=== PATIENT | male | born 1940 | race Caucasian/White ===

== ENCOUNTER 2018-04-06 12:13 | Inpatient (IN) | payer MEDICARE, OTHER ==
[2018-04-06] MEDS: morphine 2 MG INJ IV (14:25)
[2018-04-06] MEDS ORDERED: ACETAMINOPHEN 650MG/20.3ML CUP PO (14:30)
[2018-04-06] MEDS ORDERED: NACL 0.9% 3 ML SYG IV (14:30)
[2018-04-06] MEDS ORDERED: VANCOMYCIN IV PER PHARMACY XX (14:30)
[2018-04-06] MEDS ORDERED: IPRATROPIUM (NEB) 0.5 MG/2.5 ML AMP NEB (14:30)
[2018-04-06] MEDS ORDERED: ONDANSETRON 4 MG INJ IV (14:30)
[2018-04-06] MEDS ORDERED: GLUCOSE GEL 15 GRAM TUBE BUCCAL (15:00)
[2018-04-06] MEDS ORDERED: GLUCAGON 1 MG INJ IM (15:00)
[2018-04-06] MEDS ORDERED: GLUCOSE GEL 15 GRAM TUBE PO ×2 (15:00)
[2018-04-06 15:10] LABS: ADD MAN DIFF? NO
[2018-04-06 15:13] LABS: BASOPHILS % 0.2 % (0.0-2.0); EOSINOPHILS # 0.2 10^3/ul (0.0-0.5); EOSINOPHILS % 1.1 % (0.0-7.0); HEMATOCRIT 28.4 % (42.0-52.0); HEMOGLOBIN 9.3 g/dl (14.0-18.0); LYMPHOCYTES # 0.9 10^3/ul (0.8-2.9); LYMPHOCYTES % 5.1 % (15.0-51.0); MEAN CORPUSCULAR HEMOGLOBIN 28.1 pg (29.0-33.0); MEAN CORPUSCULAR HGB CONC 32.7 g/dl (32.0-37.0); MEAN CORPUSCULAR VOLUME 85.8 fl (82.0-101.0); MEAN PLATELET VOLUME 12.1 fl (7.4-10.4); MONOCYTE # 0.9 10^3/ul (0.3-0.9); MONOCYTES % 5.3 % (0.0-11.0); NEUTROPHIL # 14.7 10^3/ul (1.6-7.5); NEUTROPHILS % 87.1 % (39.0-77.0); PLATELET COUNT 111 10^3/UL (140-415); RED BLOOD COUNT 3.31 10^6/ul (4.70-6.10); RED CELL DISTRIBUTION WIDTH 16.5 % (11.5-14.5)
[2018-04-06 15:13] LABS: WHITE BLOOD COUNT 16.8 10^3/ul (4.8-10.8)
[2018-04-06] MEDS: metroNIDAZOLE 500 MG/NS (PMX) 100 ML IVPB ×2 (15:29→21:00)
[2018-04-06 15:35] LABS: ANION GAP 17 (8-16); CALCIUM 7.8 mg/dl (8.4-10.2); CARBON DIOXIDE 23 mmol/L (21-31); CHLORIDE 107 mmol/L (97-110); GLUCOSE 212 mg/dl (70-220); MAGNESIUM 3.2 mg/dl (1.7-2.5); POTASSIUM 4.6 mmol/L (3.5-5.1); SODIUM 142 mmol/L (135-144)
[2018-04-06 15:45] LABS: BLOOD UREA NITROGEN 163 mg/dl (7-20); CREATININE 3.54 mg/dl (0.61-1.24)
[2018-04-06] MEDS ORDERED: PENDING SANTYL ORDER FOR WOUND CARE XX (16:00)
[2018-04-06] MEDS: ARTIFICIAL TEARS 15 ML OPH BOTH EYES ×2 (17:39→20:27)
[2018-04-06] MEDS: INSULIN ASPART [NOVOLOG] 3 ML PEN SC ×2 (17:53→20:39)
[2018-04-06] MEDS: CIPROFLOXACIN 400MG/D5W 200 ML IVPB (18:58)
[2018-04-06 19:04] LABS: LACTIC ACID 1.5 mmol/L (0.5-2.0)
[2018-04-06 19:52] LABS: FLD MN% 32.5 %; FLD PMN% 67.5 %; FLD RBC 23000 /uL; FLD WBC 271 /cmm
[2018-04-06] MEDS: NYSTATIN 30 GM POWDER BTL TOP (20:27)
[2018-04-06] MEDS: RIFAXIMIN 550 MG TAB PEG (20:27)
[2018-04-06] MEDS: MULTIVITAMINS THERAPEUTIC TAB GTB (20:27)
[2018-04-06] MEDS: LACTULOSE 30ML CUP PEG (20:27)
[2018-04-06] MEDS: INSULIN GLARGINE [LANTus] (100 UNITS/ML) SYG SC (20:36)
[2018-04-06 20:40] LABS: FLD TYPE ASCITES
[2018-04-06 20:40] LABS: FLD CLARITY CLOUDY; FLD COLOR AMBER
[2018-04-07] MEDS: CASPOFUNGIN 50 MG in SOD CHLORIDE 0.9% 250 ML IVPB (01:51)
[2018-04-07] MEDS ORDERED: ACCU-CHEK XX (02:00)
[2018-04-07] MEDS: INSULIN ASPART [NOVOLOG] 3 ML PEN SC ×6 (02:00→21:10)
[2018-04-07 05:46] LABS: ALBUMIN/GLOBULIN RATIO 0.61; ANION GAP 18 (8-16); BILIRUBIN,TOTAL 1.2 mg/dl (0.2-1.3)
[2018-04-07 06:00] LABS: CARBON DIOXIDE 24 mmol/L (21-31); CHLORIDE 106 mmol/L (97-110); POTASSIUM 4.7 mmol/L (3.5-5.1); SODIUM 143 mmol/L (135-144)
[2018-04-07 06:01] LABS: ALANINE AMINOTRANSFERASE 682 IU/L (13-69); ALBUMIN 2.2 g/dl (3.3-4.9); ALKALINE PHOSPHATASE 718 IU/L (42-121); ASPARTATE AMINO TRANSFERASE 817 IU/L (15-46); BILIRUBIN,INDIRECT 0.6 mg/dl (0-1.1); BLOOD UREA NITROGEN 181 mg/dl (7-20); CALCIUM 8.1 mg/dl (8.4-10.2); CREATININE 3.97 mg/dl (0.61-1.24); GLUCOSE 96 mg/dl (70-220); TOTAL PROTEIN 5.8 g/dl (6.1-8.1)
[2018-04-07] MEDS: metroNIDAZOLE 500 MG/NS (PMX) 100 ML IVPB ×3 (06:27→22:09)
[2018-04-07] MEDS: PANTOPRAZOLE 40 MG INJ IV (06:27)
[2018-04-07] MEDS: RIFAXIMIN 550 MG TAB PEG ×2 (08:17→21:05)
[2018-04-07] MEDS: ARTIFICIAL TEARS 15 ML OPH BOTH EYES ×4 (08:17→21:06)
[2018-04-07] MEDS: LACTULOSE 30ML CUP PEG ×2 (08:17→21:05)
[2018-04-07] MEDS: ASPIRIN 81 MG TAB PEG (08:17)
[2018-04-07] MEDS: NYSTATIN 30 GM POWDER BTL TOP ×2 (08:17→21:06)
[2018-04-07] MEDS: predniSONE 10 MG TAB GTB (08:17)
[2018-04-07] MEDS: INSULIN GLARGINE [LANTus] (100 UNITS/ML) SYG SC ×2 (08:48→21:08)
[2018-04-07] MEDS ORDERED: CLOPIDOGREL 75 MG TAB PEG (09:00)
[2018-04-07] MEDS: morphine 2 MG INJ IV ×2 (12:16→21:05)
[2018-04-07] MEDS: OCULAR LUBRICANT 3.5 GM OPH OINT BOTH EYES (16:36)
[2018-04-07] MEDS: morphine LIQ (10 MG/5 ML) CUP PEG (16:36)
[2018-04-07] MEDS ORDERED: NORepinephrine 8MG/250 ML (PMX 250 ML (17:04)
[2018-04-07] MEDS: LIDOCAINE 1% (MPF) 5 ML VIAL SC (18:20)
[2018-04-07] MEDS: SOD CHLORIDE 0.9% 100 ML (18:30)
[2018-04-07] MEDS: CIPROFLOXACIN 400MG/D5W 200 ML IVPB (18:53)
[2018-04-07] MEDS: BACITRACIN 0.9 GM OINT TOP ×2 (21:00→21:10)
[2018-04-07] MEDS: MULTIVITAMINS THERAPEUTIC TAB GTB (21:05)
[2018-04-08] MEDS: ALBUTEROL 0.083% (NEB) 2.5 MG/3 ML AMP NEB ×2 (01:55→03:04)
[2018-04-08] MEDS: INSULIN ASPART [NOVOLOG] 3 ML PEN SC ×6 (02:07→20:57)
[2018-04-08 04:00] LABS: AADO2 Arterial 604.5 mmHg (7.0-24.0); Arterial Base Excess -2.3 mmol/L (-3.0-3); Arterial Blood Gas Oxygen Sat 90.3 mmHG (95.0-100.0); Arterial COHb 0.3 % (0.0-3.0); Arterial Fraction of Oxyhgb 89.9 % (93.0-99.0); Arterial HCO3 23.1 mmol/L (22.0-26.0); Arterial MetHb 0.1 % (0.0-1.5); Arterial Total Hemglobin 13.1 g/dl (12.0-18.0); Arterial pCO2 42.2 mmhg (35-45); MODE VENT - AC; Site Right Brachial
[2018-04-08] MEDS: HEPARIN 1000 UNITS/ML 10 ML INJ CATHETER (04:40)
[2018-04-08] MEDS: CASPOFUNGIN 50 MG in SOD CHLORIDE 0.9% 250 ML IVPB (04:47)
[2018-04-08] MEDS: morphine 2 MG INJ IV ×3 (04:49→17:39)
[2018-04-08] MEDS: PANTOPRAZOLE 40 MG INJ IV (06:06)
[2018-04-08] MEDS: metroNIDAZOLE 500 MG/NS (PMX) 100 ML IVPB ×3 (06:07→22:00)
[2018-04-08 06:28] LABS: ABNORMAL IP MESSAGE 1; HEMATOCRIT 30.8 % (42.0-52.0); HEMOGLOBIN 9.9 g/dl (14.0-18.0); MEAN CORPUSCULAR HEMOGLOBIN 27.8 pg (29.0-33.0); MEAN CORPUSCULAR HGB CONC 32.1 g/dl (32.0-37.0); MEAN CORPUSCULAR VOLUME 86.5 fl (82.0-101.0); MEAN PLATELET VOLUME 11.6 fl (7.4-10.4); NUCLEATED RED BLOOD CELLS% 0.3 /100WBC (0.0-0.0); PLATELET COUNT 171 10^3/UL (140-415); POSITIVE DIFF @See below; RED BLOOD COUNT 3.56 10^6/ul (4.70-6.10); RED CELL DISTRIBUTION WIDTH 17.6 % (11.5-14.5)
[2018-04-08 06:28] LABS: WHITE BLOOD COUNT 31.5 10^3/ul (4.8-10.8)
[2018-04-08 06:39] LABS: ADD MAN DIFF? YES
[2018-04-08 06:54] LABS: ANION GAP 18 (8-16); BLOOD UREA NITROGEN 98 mg/dl (7-20); CALCIUM 7.7 mg/dl (8.4-10.2); CARBON DIOXIDE 23 mmol/L (21-31); CHLORIDE 105 mmol/L (97-110); GLUCOSE 113 mg/dl (70-220); MAGNESIUM 2.7 mg/dl (1.7-2.5); POTASSIUM 4.2 mmol/L (3.5-5.1); SODIUM 142 mmol/L (135-144)
[2018-04-08 07:01] LABS: LACTIC ACID 4.5 mmol/L (0.5-2.0)
[2018-04-08 07:01] LABS: CREATININE 2.91 mg/dl (0.61-1.24)
[2018-04-08 07:18] LABS: Allen Test ACCEPTAB; Arterial Base Excess -3.4 mmol/L (-3.0-3); Arterial Blood Gas Oxygen Sat 97.2 mmHG (95.0-100.0); Arterial COHb 0.3 % (0.0-3.0); Arterial Fraction of Oxyhgb 96.6 % (93.0-99.0); Arterial HCO3 20.8 mmol/L (22.0-26.0); Arterial MetHb 0.3 % (0.0-1.5); Arterial Total Hemglobin 10.7 g/dl (12.0-18.0); Arterial pCO2 34.3 mmhg (35-45); MODE VENT - AC; Site Right Radial
[2018-04-08 07:50] LABS: ANISOCYTOSIS 1+ (0-0); BAND NEUTROPHILS #M 2.8 10^3/ul (0.0-0.6); BAND NEUTROPHILS % (M) 9 % (0-4); BASOPHIL #M 0.6 10^3/ul (0.0-0.0); BASOPHILS % (M) 2 % (0-2); BURR CELLS 3+ (0-0); EOSINOPHILS % (M) 1 % (0-7); LYMPHOCYTES #M 1.5 10^3/ul (0.8-2.9); LYMPHOCYTES % (M) 5 % (15-51); METAMYELOCYTES #M 0.3 10^3/ul (0.0-0.0); METAMYELOCYTES %M 1 % (0-0); MONOCYTE #M 2.2 10^3/ul (0.3-0.9); MONOCYTES % (M) 7 % (0-11); MYELOCYTES #M 0.3 10^3/ul (0.0-0.0); MYELOCYTES % (M) 1 % (0-0); PLATELET ESTIMATE NORMAL; POIKILOCYTOSIS 3+ (0-0); POLYCHROMASIA 1+ (0-0); SEG NEUT #M 24.2 10^3/ul (1.6-7.5); SEGMENTED NEUTROPHILS (M) % 74 % (39-77); SMUDGE%M 48 % (0-0)
[2018-04-08] MEDS: INSULIN GLARGINE [LANTus] (100 UNITS/ML) SYG SC ×2 (08:00→20:46)
[2018-04-08] MEDS: LACTULOSE 30ML CUP PEG ×2 (09:49→20:44)
[2018-04-08] MEDS: BACITRACIN 0.9 GM OINT TOP ×2 (09:49→20:44)
[2018-04-08] MEDS: ASPIRIN 81 MG TAB PEG (09:49)
[2018-04-08] MEDS: RIFAXIMIN 550 MG TAB PEG ×2 (09:50→20:44)
[2018-04-08] MEDS: predniSONE 10 MG TAB GTB (09:50)
[2018-04-08] MEDS: NYSTATIN 30 GM POWDER BTL TOP ×2 (09:50→20:44)
[2018-04-08] MEDS: VANCOMYCIN 750 MG in SOD CHLORIDE 0.9% 150 ML IVPB (09:50)
[2018-04-08] MEDS: ARTIFICIAL TEARS 15 ML OPH BOTH EYES ×4 (09:51→20:45)
[2018-04-08] MEDS: OCULAR LUBRICANT 3.5 GM OPH OINT BOTH EYES (09:51)
[2018-04-08] MEDS: ACETAMINOPHEN 650MG/20.3ML CUP GTB (13:32)
[2018-04-08] MEDS: CIPROFLOXACIN 400MG/D5W 200 ML IVPB (17:39)
[2018-04-08] MEDS: MULTIVITAMINS THERAPEUTIC TAB GTB (20:44)
[2018-04-08] MEDS: ALBUMIN HUMAN 25% 100 ML IV (22:41)
[2018-04-09] MEDS: INSULIN ASPART [NOVOLOG] 3 ML PEN SC ×6 (01:00→20:14)
[2018-04-09 01:22] LABS: LACTIC ACID 3.7 mmol/L (0.5-2.0)
[2018-04-09] MEDS: CASPOFUNGIN 50 MG in SOD CHLORIDE 0.9% 250 ML IVPB (02:26)
[2018-04-09] MEDS: HEPARIN 1000 UNITS/ML 10 ML INJ CATHETER ×3 (02:29→18:15)
[2018-04-09 05:05] LABS: ADD MAN DIFF? NO
[2018-04-09 05:07] LABS: WHITE BLOOD COUNT 33.4 10^3/ul (4.8-10.8)
[2018-04-09 05:07] LABS: ABNORMAL IP MESSAGE 1; BASOPHIL # 0.1 10^3/ul (0.0-0.1); BASOPHILS % 0.2 % (0.0-2.0); EOSINOPHILS # 0.6 10^3/ul (0.0-0.5); EOSINOPHILS % 1.6 % (0.0-7.0); HEMATOCRIT 27.4 % (42.0-52.0); HEMOGLOBIN 8.6 g/dl (14.0-18.0); LYMPHOCYTES # 2.2 10^3/ul (0.8-2.9); LYMPHOCYTES % 6.6 % (15.0-51.0); MEAN CORPUSCULAR HEMOGLOBIN 27.8 pg (29.0-33.0); MEAN CORPUSCULAR HGB CONC 31.4 g/dl (32.0-37.0); MEAN CORPUSCULAR VOLUME 88.7 fl (82.0-101.0); MEAN PLATELET VOLUME 11.9 fl (7.4-10.4); MONOCYTE # 2.3 10^3/ul (0.3-0.9); NEUTROPHIL # 26.9 10^3/ul (1.6-7.5); NEUTROPHILS % 80.5 % (39.0-77.0); NUCLEATED RED BLOOD CELLS # 0.2 10^3/ul (0.0-0.0); NUCLEATED RED BLOOD CELLS% 0.6 /100WBC (0.0-0.0); PLATELET COUNT 167 10^3/UL (140-415); POSITIVE DIFF @See below; RED BLOOD COUNT 3.09 10^6/ul (4.70-6.10)
[2018-04-09 05:27] LABS: ANION GAP 13 (8-16); BLOOD UREA NITROGEN 63 mg/dl (7-20); CALCIUM 7.4 mg/dl (8.4-10.2); CARBON DIOXIDE 27 mmol/L (21-31); CHLORIDE 102 mmol/L (97-110); GLUCOSE 97 mg/dl (70-220); MAGNESIUM 2.3 mg/dl (1.7-2.5); PHOSPHORUS 5.8 mg/dl (2.5-4.9); POTASSIUM 4.2 mmol/L (3.5-5.1); SODIUM 138 mmol/L (135-144)
[2018-04-09 05:34] LABS: CREATININE 2.48 mg/dl (0.61-1.24)
[2018-04-09] MEDS: metroNIDAZOLE 500 MG/NS (PMX) 100 ML IVPB ×3 (06:11→21:34)
[2018-04-09] MEDS: PANTOPRAZOLE 40 MG INJ IV (06:11)
[2018-04-09] MEDS: RIFAXIMIN 550 MG TAB PEG ×2 (08:41→20:13)
[2018-04-09] MEDS: BACITRACIN 0.9 GM OINT TOP ×2 (08:41→20:19)
[2018-04-09] MEDS: predniSONE 10 MG TAB GTB (08:41)
[2018-04-09] MEDS: LACTULOSE 30ML CUP PEG ×2 (08:41→20:12)
[2018-04-09] MEDS: ASPIRIN 81 MG TAB PEG (08:41)
[2018-04-09] MEDS: morphine 2 MG INJ IV (09:09)
[2018-04-09 10:00] LABS: AADO2 Arterial 395.6 mmHg (7.0-24.0); Allen Test ACCEPTAB; Arterial Base Excess -1.6 mmol/L (-3.0-3); Arterial Blood Gas Oxygen Sat 98.3 mmHG (95.0-100.0); Arterial COHb 0.3 % (0.0-3.0); Arterial Fraction of Oxyhgb 97.6 % (93.0-99.0); Arterial HCO3 22.8 mmol/L (22.0-26.0); Arterial MetHb 0.4 % (0.0-1.5); Arterial Total Hemglobin 10.2 g/dl (12.0-18.0); Arterial pCO2 36.9 mmhg (35-45); MODE VENT - AC; Site Right Radial
[2018-04-09] MEDS: OCULAR LUBRICANT 3.5 GM OPH OINT BOTH EYES ×3 (10:32→20:13)
[2018-04-09] MEDS: NYSTATIN 30 GM POWDER BTL TOP ×2 (10:32→20:13)
[2018-04-09] MEDS: ARTIFICIAL TEARS 15 ML OPH BOTH EYES ×4 (10:35→20:13)
[2018-04-09] MEDS: INSULIN GLARGINE [LANTus] (100 UNITS/ML) SYG SC ×2 (10:36→20:17)
[2018-04-09] MEDS: ALBUMIN HUMAN 25% 100 ML IV (17:19)
[2018-04-09] MEDS ORDERED: PHENYLephrine 20MG IN 250 ML 250 ML (17:33)
[2018-04-09] MEDS ORDERED: NORepinephrine 8MG/250 ML (PMX 250 ML (18:12)
[2018-04-09] MEDS: CIPROFLOXACIN 400MG/D5W 200 ML IVPB (18:16)
[2018-04-09] MEDS: VANCOMYCIN HCL 250 MG/5ML POSYG GTB (19:00)
[2018-04-09] MEDS: MULTIVITAMINS THERAPEUTIC TAB GTB (20:13)
[2018-04-09] MEDS: morphine LIQ (10 MG/5 ML) CUP PEG (21:34)
[2018-04-10] MEDS: INSULIN ASPART [NOVOLOG] 3 ML PEN SC ×6 (01:00→20:58)
[2018-04-10] MEDS: VANCOMYCIN HCL 250 MG/5ML POSYG GTB ×4 (01:01→18:12)
[2018-04-10] MEDS: CASPOFUNGIN 50 MG in SOD CHLORIDE 0.9% 250 ML IVPB (01:16)
[2018-04-10] MEDS: PANTOPRAZOLE 40 MG INJ IV (05:00)
[2018-04-10] MEDS: metroNIDAZOLE 500 MG/NS (PMX) 100 ML IVPB ×2 (05:00→14:44)
[2018-04-10 05:09] LABS: ADD MAN DIFF? NO
[2018-04-10 05:12] LABS: WHITE BLOOD COUNT 25.8 10^3/ul (4.8-10.8)
[2018-04-10 05:12] LABS: ABNORMAL IP MESSAGE 1; BASOPHILS % 0.2 % (0.0-2.0); EOSINOPHILS % 3.8 % (0.0-7.0); HEMATOCRIT 25.3 % (42.0-52.0); LYMPHOCYTES # 2.3 10^3/ul (0.8-2.9); LYMPHOCYTES % 8.9 % (15.0-51.0); MEAN CORPUSCULAR HGB CONC 31.6 g/dl (32.0-37.0); MEAN CORPUSCULAR VOLUME 88.5 fl (82.0-101.0); MEAN PLATELET VOLUME 11.2 fl (7.4-10.4); MONOCYTES % 7.6 % (0.0-11.0); NEUTROPHIL # 19.7 10^3/ul (1.6-7.5); NEUTROPHILS % 76.5 % (39.0-77.0); NUCLEATED RED BLOOD CELLS # 0.1 10^3/ul (0.0-0.0); NUCLEATED RED BLOOD CELLS% 0.3 /100WBC (0.0-0.0); PLATELET COUNT 105 10^3/UL (140-415); POSITIVE DIFF @See below; RED BLOOD COUNT 2.86 10^6/ul (4.70-6.10)
[2018-04-10 05:52] LABS: ANION GAP 15 (8-16); BLOOD UREA NITROGEN 70 mg/dl (7-20); CALCIUM 7.1 mg/dl (8.4-10.2); CARBON DIOXIDE 23 mmol/L (21-31); CHLORIDE 99 mmol/L (97-110); GLUCOSE 128 mg/dl (70-220); MAGNESIUM 2.2 mg/dl (1.7-2.5); PHOSPHORUS 6.5 mg/dl (2.5-4.9); POTASSIUM 4.4 mmol/L (3.5-5.1); SODIUM 133 mmol/L (135-144)
[2018-04-10 06:00] LABS: CREATININE 2.88 mg/dl (0.61-1.24)
[2018-04-10] MEDS: LACTULOSE 30ML CUP PEG ×2 (08:14→20:48)
[2018-04-10] MEDS: predniSONE 10 MG TAB GTB (08:14)
[2018-04-10] MEDS: ARTIFICIAL TEARS 15 ML OPH BOTH EYES ×4 (08:15→20:48)
[2018-04-10] MEDS: ASPIRIN 81 MG TAB PEG (08:15)
[2018-04-10] MEDS: NYSTATIN 30 GM POWDER BTL TOP ×2 (08:15→20:48)
[2018-04-10] MEDS: BACITRACIN 0.9 GM OINT TOP ×2 (08:16→20:48)
[2018-04-10] MEDS: INSULIN GLARGINE [LANTus] (100 UNITS/ML) SYG SC ×2 (08:17→20:51)
[2018-04-10] MEDS: VANCOMYCIN 750 MG in SOD CHLORIDE 0.9% 150 ML IVPB (10:55)
[2018-04-10] MEDS: morphine 2 MG INJ IV ×2 (12:06→18:15)
[2018-04-10] MEDS: CIPROFLOXACIN 400MG/D5W 200 ML IVPB (18:15)
[2018-04-10] MEDS: MULTIVITAMINS THERAPEUTIC TAB GTB (20:48)
[2018-04-11] MEDS: VANCOMYCIN HCL 250 MG/5ML POSYG GTB ×4 (00:08→17:14)
[2018-04-11] MEDS: morphine 2 MG INJ IV ×3 (00:09→23:58)
[2018-04-11] MEDS: INSULIN ASPART [NOVOLOG] 3 ML PEN SC ×6 (01:00→21:00)
[2018-04-11] MEDS: PANTOPRAZOLE 40 MG INJ IV (05:28)
[2018-04-11 05:29] LABS: ADD MAN DIFF? NO
[2018-04-11 05:35] LABS: WHITE BLOOD COUNT 22.6 10^3/ul (4.8-10.8)
[2018-04-11 05:35] LABS: BASOPHILS % 0.2 % (0.0-2.0); EOSINOPHILS # 0.8 10^3/ul (0.0-0.5); EOSINOPHILS % 3.6 % (0.0-7.0); HEMATOCRIT 26.7 % (42.0-52.0); HEMOGLOBIN 8.7 g/dl (14.0-18.0); LYMPHOCYTES # 1.8 10^3/ul (0.8-2.9); LYMPHOCYTES % 7.7 % (15.0-51.0); MEAN CORPUSCULAR HEMOGLOBIN 28.6 pg (29.0-33.0); MEAN CORPUSCULAR HGB CONC 32.6 g/dl (32.0-37.0); MEAN CORPUSCULAR VOLUME 87.8 fl (82.0-101.0); MEAN PLATELET VOLUME 11.5 fl (7.4-10.4); MONOCYTE # 1.4 10^3/ul (0.3-0.9); MONOCYTES % 6.3 % (0.0-11.0); NEUTROPHIL # 18.2 10^3/ul (1.6-7.5); NEUTROPHILS % 80.2 % (39.0-77.0); NUCLEATED RED BLOOD CELLS # 0.1 10^3/ul (0.0-0.0); NUCLEATED RED BLOOD CELLS% 0.3 /100WBC (0.0-0.0); PLATELET COUNT 118 10^3/UL (140-415); RED BLOOD COUNT 3.04 10^6/ul (4.70-6.10); RED CELL DISTRIBUTION WIDTH 19.9 % (11.5-14.5)
[2018-04-11 05:51] LABS: ANION GAP 20 (8-16); BLOOD UREA NITROGEN 99 mg/dl (7-20); CALCIUM 6.6 mg/dl (8.4-10.2); CARBON DIOXIDE 21 mmol/L (21-31); CHLORIDE 95 mmol/L (97-110); GLUCOSE 93 mg/dl (70-220); MAGNESIUM 2.2 mg/dl (1.7-2.5); PHOSPHORUS 7.1 mg/dl (2.5-4.9); POTASSIUM 4.5 mmol/L (3.5-5.1); SODIUM 131 mmol/L (135-144)
[2018-04-11 06:02] LABS: CREATININE 3.94 mg/dl (0.61-1.24)
[2018-04-11] MEDS: INSULIN GLARGINE [LANTus] (100 UNITS/ML) SYG SC ×2 (08:00→20:33)
[2018-04-11] MEDS: ARTIFICIAL TEARS 15 ML OPH BOTH EYES ×4 (08:19→20:42)
[2018-04-11] MEDS: ASPIRIN 81 MG TAB PEG (08:19)
[2018-04-11] MEDS: OCULAR LUBRICANT 3.5 GM OPH OINT BOTH EYES (08:19)
[2018-04-11] MEDS: NYSTATIN 30 GM POWDER BTL TOP ×2 (08:19→20:41)
[2018-04-11] MEDS: predniSONE 10 MG TAB GTB (08:19)
[2018-04-11] MEDS: BACITRACIN 0.9 GM OINT TOP ×2 (08:27→20:41)
[2018-04-11] MEDS: LACTULOSE 30ML CUP PEG ×2 (08:27→20:41)
[2018-04-11] MEDS: DEXTROSE 50% 50 ML SYRINGE IV ×2 (08:31→16:05)
[2018-04-11] MEDS: HEPARIN 1000 UNITS/ML 10 ML INJ CATHETER (12:09)
[2018-04-11] MEDS: CIPROFLOXACIN 400MG/D5W 200 ML IVPB (18:45)
[2018-04-11] MEDS: MULTIVITAMINS THERAPEUTIC TAB GTB (20:42)
[2018-04-12] MEDS: VANCOMYCIN HCL 250 MG/5ML POSYG GTB ×5 (00:40→23:29)
[2018-04-12] MEDS: INSULIN ASPART [NOVOLOG] 3 ML PEN SC ×6 (00:51→20:16)
[2018-04-12 04:31] LABS: AADO2 Arterial 157.3 mmHg (7.0-24.0); Allen Test ACCEPTAB; Arterial Base Excess -6.1 mmol/L (-3.0-3); Arterial Blood Gas Oxygen Sat 90.7 mmHG (95.0-100.0); Arterial COHb 0.3 % (0.0-3.0); Arterial Fraction of Oxyhgb 90.2 % (93.0-99.0); Arterial HCO3 16.7 mmol/L (22.0-26.0); Arterial MetHb 0.2 % (0.0-1.5); Arterial Total Hemglobin 10.6 g/dl (12.0-18.0); Arterial pCO2 25.4 mmhg (35-45); MODE VENT - AC; Site Left Radial
[2018-04-12 05:08] LABS: ADD MAN DIFF? NO
[2018-04-12 05:11] LABS: BASOPHILS % 0.1 % (0.0-2.0); EOSINOPHILS # 0.9 10^3/ul (0.0-0.5); EOSINOPHILS % 4.6 % (0.0-7.0); HEMOGLOBIN 9.1 g/dl (14.0-18.0); LYMPHOCYTES # 1.3 10^3/ul (0.8-2.9); LYMPHOCYTES % 6.7 % (15.0-51.0); MEAN CORPUSCULAR HEMOGLOBIN 28.3 pg (29.0-33.0); MEAN CORPUSCULAR HGB CONC 32.5 g/dl (32.0-37.0); MEAN PLATELET VOLUME 11.4 fl (7.4-10.4); MONOCYTE # 1.2 10^3/ul (0.3-0.9); MONOCYTES % 6.5 % (0.0-11.0); NEUTROPHIL # 15.3 10^3/ul (1.6-7.5); NUCLEATED RED BLOOD CELLS% 0.2 /100WBC (0.0-0.0); PLATELET COUNT 131 10^3/UL (140-415); RED BLOOD COUNT 3.22 10^6/ul (4.70-6.10)
[2018-04-12 05:11] LABS: WHITE BLOOD COUNT 18.9 10^3/ul (4.8-10.8)
[2018-04-12 05:48] LABS: PHOSPHORUS 8.4 mg/dl (2.5-4.9)
[2018-04-12 05:48] LABS: MAGNESIUM 2.1 mg/dl (1.7-2.5)
[2018-04-12 05:57] LABS: ANION GAP 21 (8-16); BLOOD UREA NITROGEN 109 mg/dl (7-20); CARBON DIOXIDE 19 mmol/L (21-31); CHLORIDE 94 mmol/L (97-110); GLUCOSE 106 mg/dl (70-220); POTASSIUM 5.1 mmol/L (3.5-5.1); SODIUM 129 mmol/L (135-144)
[2018-04-12] MEDS: PANTOPRAZOLE 40 MG INJ IV (06:03)
[2018-04-12 06:09] LABS: CREATININE 4.82 mg/dl (0.61-1.24)
[2018-04-12] MEDS: LACTULOSE 30ML CUP PEG ×2 (09:17→20:11)
[2018-04-12] MEDS: ASPIRIN 81 MG TAB PEG (09:17)
[2018-04-12] MEDS: BACITRACIN 0.9 GM OINT TOP ×2 (09:17→20:11)
[2018-04-12] MEDS: NYSTATIN 30 GM POWDER BTL TOP ×2 (09:17→20:12)
[2018-04-12] MEDS: OCULAR LUBRICANT 3.5 GM OPH OINT BOTH EYES ×2 (09:17→18:07)
[2018-04-12] MEDS: ARTIFICIAL TEARS 15 ML OPH BOTH EYES ×4 (09:17→20:12)
[2018-04-12] MEDS: predniSONE 10 MG TAB GTB (09:17)
[2018-04-12] MEDS: INSULIN GLARGINE [LANTus] (100 UNITS/ML) SYG SC ×2 (09:20→20:15)
[2018-04-12] MEDS: SOD CHLORIDE 0.9% 1,000 ML IV (10:00)
[2018-04-12] MEDS: morphine 2 MG INJ IV (14:01)
[2018-04-12] MEDS: CASPOFUNGIN 50 MG in NS 250 ML IVPB (14:17)
[2018-04-12] MEDS: Metronidazole 500 MG in NS 100 ML IVPB ×2 (14:17→21:43)
[2018-04-12] MEDS: CIPROFLOXACIN 400MG/D5W 200 ML IVPB (18:06)
[2018-04-12] MEDS: MULTIVITAMINS THERAPEUTIC TAB GTB (20:12)
[2018-04-13] MEDS: INSULIN ASPART [NOVOLOG] 3 ML PEN SC ×6 (01:28→20:17)
[2018-04-13] MEDS: SOD CHLORIDE 0.9% 1,000 ML IV ×2 (04:11→11:00)
[2018-04-13 05:21] LABS: ADD MAN DIFF? NO
[2018-04-13 05:30] LABS: ABNORMAL IP MESSAGE 1; BASOPHILS % 0.1 % (0.0-2.0); EOSINOPHILS # 0.6 10^3/ul (0.0-0.5); EOSINOPHILS % 3.8 % (0.0-7.0); HEMATOCRIT 27.1 % (42.0-52.0); HEMOGLOBIN 8.9 g/dl (14.0-18.0); LYMPHOCYTES % 7.2 % (15.0-51.0); MEAN CORPUSCULAR HEMOGLOBIN 28.4 pg (29.0-33.0); MEAN CORPUSCULAR HGB CONC 32.8 g/dl (32.0-37.0); MEAN CORPUSCULAR VOLUME 86.6 fl (82.0-101.0); MEAN PLATELET VOLUME 11.6 fl (7.4-10.4); MONOCYTE # 0.9 10^3/ul (0.3-0.9); MONOCYTES % 6.3 % (0.0-11.0); NEUTROPHIL # 11.8 10^3/ul (1.6-7.5); NEUTROPHILS % 81.5 % (39.0-77.0); NUCLEATED RED BLOOD CELLS% 0.2 /100WBC (0.0-0.0); PLATELET COUNT 128 10^3/UL (140-415); POSITIVE DIFF @See below; RED BLOOD COUNT 3.13 10^6/ul (4.70-6.10); RED CELL DISTRIBUTION WIDTH 22.6 % (11.5-14.5)
[2018-04-13 05:30] LABS: WHITE BLOOD COUNT 14.5 10^3/ul (4.8-10.8)
[2018-04-13 05:57] LABS: ANION GAP 24 (8-16); CARBON DIOXIDE 15 mmol/L (21-31); CHLORIDE 95 mmol/L (97-110); GLUCOSE 107 mg/dl (70-220); MAGNESIUM 2.2 mg/dl (1.7-2.5); PHOSPHORUS 9.6 mg/dl (2.5-4.9); POTASSIUM 5.3 mmol/L (3.5-5.1); SODIUM 129 mmol/L (135-144)
[2018-04-13 06:04] LABS: ALANINE AMINOTRANSFERASE 574 IU/L (13-69)
[2018-04-13 06:04] LABS: ASPARTATE AMINO TRANSFERASE 496 IU/L (15-46)
[2018-04-13] MEDS: VANCOMYCIN HCL 250 MG/5ML POSYG GTB ×4 (06:08→23:28)
[2018-04-13] MEDS: PANTOPRAZOLE 40 MG INJ IV (06:08)
[2018-04-13] MEDS: Metronidazole 500 MG in NS 100 ML IVPB ×3 (06:09→21:52)
[2018-04-13 06:30] LABS: BLOOD UREA NITROGEN 130 mg/dl (7-20)
[2018-04-13 06:31] LABS: CALCIUM 5.5 mg/dl (8.4-10.2)
[2018-04-13 06:51] LABS: CREATININE 5.26 mg/dl (0.61-1.24)
[2018-04-13] MEDS: LACTULOSE 30ML CUP PEG ×2 (09:28→20:16)
[2018-04-13] MEDS: BACITRACIN 0.9 GM OINT TOP ×2 (09:28→20:16)
[2018-04-13] MEDS: ASPIRIN 81 MG TAB PEG (09:28)
[2018-04-13] MEDS: OCULAR LUBRICANT 3.5 GM OPH OINT BOTH EYES ×2 (09:29→17:15)
[2018-04-13] MEDS: VANCOMYCIN 750 MG in SOD CHLORIDE 0.9% 150 ML IVPB (09:29)
[2018-04-13] MEDS: ARTIFICIAL TEARS 15 ML OPH BOTH EYES ×4 (09:29→20:17)
[2018-04-13] MEDS: NYSTATIN 30 GM POWDER BTL TOP ×2 (09:29→20:16)
[2018-04-13] MEDS: predniSONE 10 MG TAB GTB (09:31)
[2018-04-13] MEDS: INSULIN GLARGINE [LANTus] (100 UNITS/ML) SYG SC ×2 (09:34→20:18)
[2018-04-13] MEDS ORDERED: NORepinephrine 8MG/250 ML (PMX 250 ML (12:34)
[2018-04-13] MEDS: HEPARIN 1000 UNITS/ML 10 ML INJ CATHETER (12:40)
[2018-04-13] MEDS: CASPOFUNGIN 50 MG in NS 250 ML IVPB (12:45)
[2018-04-13] MEDS: DEXTROSE 50% 50 ML SYRINGE IV (17:23)
[2018-04-13] MEDS: CIPROFLOXACIN 400MG/D5W 200 ML IVPB (17:42)
[2018-04-13] MEDS: MULTIVITAMINS THERAPEUTIC TAB GTB (20:16)
[2018-04-14] MEDS: INSULIN ASPART [NOVOLOG] 3 ML PEN SC ×6 (01:00→20:41)
[2018-04-14 05:23] LABS: ADD MAN DIFF? NO
[2018-04-14 05:31] LABS: ABNORMAL IP MESSAGE 1; BASOPHILS % 0.1 % (0.0-2.0); EOSINOPHILS # 0.5 10^3/ul (0.0-0.5); EOSINOPHILS % 5.3 % (0.0-7.0); HEMATOCRIT 25.9 % (42.0-52.0); HEMOGLOBIN 8.5 g/dl (14.0-18.0); LYMPHOCYTES # 0.9 10^3/ul (0.8-2.9); LYMPHOCYTES % 9.2 % (15.0-51.0); MEAN CORPUSCULAR HEMOGLOBIN 28.5 pg (29.0-33.0); MEAN CORPUSCULAR HGB CONC 32.8 g/dl (32.0-37.0); MEAN CORPUSCULAR VOLUME 86.9 fl (82.0-101.0); MEAN PLATELET VOLUME 11.1 fl (7.4-10.4); MONOCYTE # 0.8 10^3/ul (0.3-0.9); MONOCYTES % 7.5 % (0.0-11.0); NEUTROPHIL # 7.8 10^3/ul (1.6-7.5); NEUTROPHILS % 77.2 % (39.0-77.0); NUCLEATED RED BLOOD CELLS% 0.3 /100WBC (0.0-0.0); PLATELET COUNT 90 10^3/UL (140-415); POSITIVE DIFF @See below; RED BLOOD COUNT 2.98 10^6/ul (4.70-6.10); RED CELL DISTRIBUTION WIDTH 23.9 % (11.5-14.5)
[2018-04-14] MEDS: VANCOMYCIN HCL 250 MG/5ML POSYG GTB ×3 (05:43→17:13)
[2018-04-14] MEDS: PANTOPRAZOLE 40 MG INJ IV (05:43)
[2018-04-14] MEDS: Metronidazole 500 MG in NS 100 ML IVPB ×3 (05:43→21:52)
[2018-04-14 05:58] LABS: ANION GAP 18 (8-16); BLOOD UREA NITROGEN 87 mg/dl (7-20); CALCIUM 6.2 mg/dl (8.4-10.2); CARBON DIOXIDE 21 mmol/L (21-31); CHLORIDE 98 mmol/L (97-110); GLUCOSE 87 mg/dl (70-220); POTASSIUM 3.6 mmol/L (3.5-5.1); SODIUM 133 mmol/L (135-144)
[2018-04-14 06:20] LABS: CREATININE 3.42 mg/dl (0.61-1.24)
[2018-04-14] MEDS: NYSTATIN 30 GM POWDER BTL TOP ×2 (07:32→20:38)
[2018-04-14] MEDS: BACITRACIN 0.9 GM OINT TOP ×2 (07:32→20:39)
[2018-04-14] MEDS: ARTIFICIAL TEARS 15 ML OPH BOTH EYES ×4 (07:33→20:39)
[2018-04-14] MEDS: INSULIN GLARGINE [LANTus] (100 UNITS/ML) SYG SC ×2 (07:34→20:41)
[2018-04-14] MEDS: ASPIRIN 81 MG TAB PEG (08:44)
[2018-04-14] MEDS: predniSONE 10 MG TAB GTB (08:44)
[2018-04-14] MEDS: LACTULOSE 30ML CUP PEG ×2 (08:44→20:38)
[2018-04-14] MEDS: POTASSIUM CHLORIDE 100 ML IVPB (09:50)
[2018-04-14] MEDS: VASOPRESSIN 60 UNIT in DEXTROSE 5% 57 ML IV (11:01)
[2018-04-14] MEDS: CASPOFUNGIN 50 MG in NS 250 ML IVPB (11:55)
[2018-04-14] MEDS: CIPROFLOXACIN 400MG/D5W 200 ML IVPB (17:13)
[2018-04-14] MEDS: SOD CHLORIDE 0.9% 1,000 ML IV (17:13)
[2018-04-14] MEDS ORDERED: INSULIN GLARGINE [LANTus] (100 UNITS/ML) SYG SC (20:00)
[2018-04-14] MEDS: MULTIVITAMINS THERAPEUTIC TAB GTB (20:38)
[2018-04-15] MEDS: VANCOMYCIN HCL 250 MG/5ML POSYG GTB ×4 (01:06→18:09)
[2018-04-15] MEDS: VASOPRESSIN 60 UNIT in DEXTROSE 5% 57 ML IV ×2 (01:15→10:00)
[2018-04-15] MEDS: INSULIN ASPART [NOVOLOG] 3 ML PEN SC ×6 (01:18→21:05)
[2018-04-15] MEDS ORDERED: LORAZEPAM 2 MG INJ IV (05:30)
[2018-04-15] MEDS: PANTOPRAZOLE 40 MG INJ IV (05:43)
[2018-04-15] MEDS: Metronidazole 500 MG in NS 100 ML IVPB ×3 (05:43→22:44)
[2018-04-15] MEDS ORDERED: MIDAZOLAM (DRIP) 50 mg/50 mL 50 ML IV (06:00)
[2018-04-15 06:15] LABS: ADD MAN DIFF? NO
[2018-04-15 06:25] LABS: ABNORMAL IP MESSAGE 1; BASOPHILS % 0.3 % (0.0-2.0); EOSINOPHILS # 0.3 10^3/ul (0.0-0.5); EOSINOPHILS % 3.7 % (0.0-7.0); HEMATOCRIT 25.6 % (42.0-52.0); HEMOGLOBIN 8.3 g/dl (14.0-18.0); LYMPHOCYTES # 0.9 10^3/ul (0.8-2.9); LYMPHOCYTES % 12.2 % (15.0-51.0); MEAN CORPUSCULAR HEMOGLOBIN 28.6 pg (29.0-33.0); MEAN CORPUSCULAR HGB CONC 32.4 g/dl (32.0-37.0); MEAN CORPUSCULAR VOLUME 88.3 fl (82.0-101.0); MEAN PLATELET VOLUME 12.1 fl (7.4-10.4); MONOCYTE # 0.5 10^3/ul (0.3-0.9); MONOCYTES % 6.9 % (0.0-11.0); NEUTROPHIL # 5.6 10^3/ul (1.6-7.5); NEUTROPHILS % 76.4 % (39.0-77.0); PLATELET COUNT 80 10^3/UL (140-415); POSITIVE DIFF @See below; RED CELL DISTRIBUTION WIDTH 23.7 % (11.5-14.5)
[2018-04-15 06:25] LABS: WHITE BLOOD COUNT 7.4 10^3/ul (4.8-10.8)
[2018-04-15 06:42] LABS: LACTIC ACID 4.7 mmol/L (0.5-2.0)
[2018-04-15 07:06] LABS: ANION GAP 20 (8-16); BLOOD UREA NITROGEN 108 mg/dl (7-20); CALCIUM 6.2 mg/dl (8.4-10.2); CARBON DIOXIDE 19 mmol/L (21-31); CHLORIDE 98 mmol/L (97-110); GLUCOSE 226 mg/dl (70-220); MAGNESIUM 2.2 mg/dl (1.7-2.5); SODIUM 133 mmol/L (135-144)
[2018-04-15 07:17] LABS: CREATININE 4.12 mg/dl (0.61-1.24)
[2018-04-15] MEDS: INSULIN GLARGINE [LANTus] (100 UNITS/ML) SYG SC ×2 (07:59→21:05)
[2018-04-15] MEDS: ASPIRIN 81 MG TAB PEG (08:00)
[2018-04-15] MEDS: LACTULOSE 30ML CUP PEG ×2 (08:00→20:51)
[2018-04-15] MEDS: BACITRACIN 0.9 GM OINT TOP ×2 (08:00→20:53)
[2018-04-15] MEDS: ARTIFICIAL TEARS 15 ML OPH BOTH EYES ×4 (08:00→20:54)
[2018-04-15] MEDS: NYSTATIN 30 GM POWDER BTL TOP ×2 (08:00→20:54)
[2018-04-15] MEDS: predniSONE 10 MG TAB GTB (08:00)
[2018-04-15] MEDS: SOD CHLORIDE 0.9% 1,000 ML IV (10:44)
[2018-04-15] MEDS: CASPOFUNGIN 50 MG in NS 250 ML IVPB (12:47)
[2018-04-15] MEDS: HEPARIN 1000 UNITS/ML 10 ML INJ CATHETER (13:27)
[2018-04-15] MEDS: CIPROFLOXACIN 400MG/D5W 200 ML IVPB (18:09)
[2018-04-15] MEDS: MULTIVITAMINS THERAPEUTIC TAB GTB (20:53)
[2018-04-15] MEDS: morphine 2 MG INJ IV (20:54)
[2018-04-16] MEDS: VANCOMYCIN HCL 250 MG/5ML POSYG GTB ×3 (00:28→12:07)
[2018-04-16] MEDS: INSULIN ASPART [NOVOLOG] 3 ML PEN SC ×6 (00:37→21:02)
[2018-04-16] MEDS ORDERED: COLLAGENASE 5 GM (UD JAR) TOP (01:00)
[2018-04-16] MEDS: VASOPRESSIN 60 UNIT in DEXTROSE 5% 57 ML IV ×3 (02:15→21:30)
[2018-04-16] MEDS ORDERED: TICAGRELOR 90 MG TABLET PO (04:00)
[2018-04-16] MEDS: PANTOPRAZOLE 40 MG INJ IV (05:00)
[2018-04-16] MEDS: Metronidazole 500 MG in NS 100 ML IVPB ×3 (05:00→21:37)
[2018-04-16 05:23] LABS: ADD MAN DIFF? NO
[2018-04-16 05:29] LABS: ABNORMAL IP MESSAGE 1; BASOPHILS % 0.2 % (0.0-2.0); EOSINOPHILS # 0.4 10^3/ul (0.0-0.5); EOSINOPHILS % 8.5 % (0.0-7.0); HEMATOCRIT 28.1 % (42.0-52.0); LYMPHOCYTES # 0.9 10^3/ul (0.8-2.9); MEAN CORPUSCULAR HEMOGLOBIN 28.2 pg (29.0-33.0); MEAN CORPUSCULAR VOLUME 88.1 fl (82.0-101.0); MEAN PLATELET VOLUME 11.2 fl (7.4-10.4); MONOCYTE # 0.3 10^3/ul (0.3-0.9); MONOCYTES % 7.1 % (0.0-11.0); NEUTROPHIL # 2.7 10^3/ul (1.6-7.5); NEUTROPHILS % 63.7 % (39.0-77.0); NUCLEATED RED BLOOD CELLS% 0.5 /100WBC (0.0-0.0); PLATELET COUNT 71 10^3/UL (140-415); POSITIVE DIFF @See below; RED BLOOD COUNT 3.19 10^6/ul (4.70-6.10); RED CELL DISTRIBUTION WIDTH 23.9 % (11.5-14.5)
[2018-04-16 05:29] LABS: WHITE BLOOD COUNT 4.2 10^3/ul (4.8-10.8)
[2018-04-16 05:55] LABS: ANION GAP 18 (8-16); BLOOD UREA NITROGEN 77 mg/dl (7-20); CALCIUM 6.8 mg/dl (8.4-10.2); CARBON DIOXIDE 21 mmol/L (21-31); CHLORIDE 96 mmol/L (97-110); GLUCOSE 156 mg/dl (70-220); MAGNESIUM 2.1 mg/dl (1.7-2.5); PHOSPHORUS 6.9 mg/dl (2.5-4.9); POTASSIUM 3.5 mmol/L (3.5-5.1); SODIUM 131 mmol/L (135-144)
[2018-04-16 06:05] LABS: CREATININE 2.95 mg/dl (0.61-1.24)
[2018-04-16] MEDS: INSULIN GLARGINE [LANTus] (100 UNITS/ML) SYG SC ×2 (07:56→21:01)
[2018-04-16] MEDS: ASPIRIN 81 MG TAB PEG (08:00)
[2018-04-16] MEDS: BACITRACIN 0.9 GM OINT TOP ×2 (08:00→21:05)
[2018-04-16] MEDS: LACTULOSE 30ML CUP PEG ×2 (08:00→21:04)
[2018-04-16] MEDS: predniSONE 10 MG TAB GTB (08:00)
[2018-04-16] MEDS: ARTIFICIAL TEARS 15 ML OPH BOTH EYES ×4 (08:03→21:05)
[2018-04-16] MEDS: COLLAGENASE 5 GM (UD JAR) TOP (08:03)
[2018-04-16] MEDS: NYSTATIN 30 GM POWDER BTL TOP ×2 (08:04→21:05)
[2018-04-16 10:31] LABS: VANCOMYCIN,TROUGH 14.3 ug/ml (10.0-20.0)
[2018-04-16] MEDS: VANCOMYCIN 750 MG in SOD CHLORIDE 0.9% 150 ML IVPB (12:07)
[2018-04-16] MEDS: CASPOFUNGIN 50 MG in NS 250 ML IVPB (14:12)
[2018-04-16] MEDS: CIPROFLOXACIN 400MG/D5W 200 ML IVPB (18:21)
[2018-04-16] MEDS: MULTIVITAMINS THERAPEUTIC TAB GTB (21:04)
[2018-04-17] MEDS: INSULIN ASPART [NOVOLOG] 3 ML PEN SC ×6 (01:38→21:05)
[2018-04-17 05:00] LABS: ADD MAN DIFF? NO
[2018-04-17 05:17] LABS: ABNORMAL IP MESSAGE 1; BASOPHILS % 0.2 % (0.0-2.0); EOSINOPHILS # 0.2 10^3/ul (0.0-0.5); EOSINOPHILS % 4.2 % (0.0-7.0); HEMATOCRIT 28.2 % (42.0-52.0); HEMOGLOBIN 9.1 g/dl (14.0-18.0); LYMPHOCYTES # 0.9 10^3/ul (0.8-2.9); LYMPHOCYTES % 18.6 % (15.0-51.0); MEAN CORPUSCULAR HEMOGLOBIN 28.6 pg (29.0-33.0); MEAN CORPUSCULAR HGB CONC 32.3 g/dl (32.0-37.0); MEAN CORPUSCULAR VOLUME 88.7 fl (82.0-101.0); MEAN PLATELET VOLUME 11.2 fl (7.4-10.4); MONOCYTE # 0.3 10^3/ul (0.3-0.9); MONOCYTES % 6.8 % (0.0-11.0); NEUTROPHIL # 3.5 10^3/ul (1.6-7.5); NEUTROPHILS % 69.8 % (39.0-77.0); NUCLEATED RED BLOOD CELLS% 0.6 /100WBC (0.0-0.0); PLATELET COUNT 80 10^3/UL (140-415); POSITIVE DIFF @See below; RED BLOOD COUNT 3.18 10^6/ul (4.70-6.10); RED CELL DISTRIBUTION WIDTH 23.3 % (11.5-14.5)
[2018-04-17 05:49] LABS: ANION GAP 22 (8-16); BLOOD UREA NITROGEN 105 mg/dl (7-20); CALCIUM 6.7 mg/dl (8.4-10.2); CARBON DIOXIDE 18 mmol/L (21-31); CHLORIDE 98 mmol/L (97-110); GLUCOSE 210 mg/dl (70-220); MAGNESIUM 2.2 mg/dl (1.7-2.5); PHOSPHORUS 7.5 mg/dl (2.5-4.9); POTASSIUM 3.6 mmol/L (3.5-5.1); SODIUM 134 mmol/L (135-144)
[2018-04-17 05:56] LABS: CREATININE 3.57 mg/dl (0.61-1.24)
[2018-04-17] MEDS: Metronidazole 500 MG in NS 100 ML IVPB ×3 (06:07→22:40)
[2018-04-17] MEDS: PANTOPRAZOLE 40 MG INJ IV (06:07)
[2018-04-17 06:11] LABS: AMMONIA 26 umol/l (9-30)
[2018-04-17 08:30] LABS: AADO2 Arterial 160.2 mmHg (7.0-24.0); Allen Test ACCEPTAB; Arterial Base Excess -5.9 mmol/L (-3.0-3); Arterial COHb 0.3 % (0.0-3.0); Arterial Fraction of Oxyhgb 96.5 % (93.0-99.0); Arterial HCO3 17.2 mmol/L (22.0-26.0); Arterial MetHb 0.2 % (0.0-1.5); Arterial Total Hemglobin 11.1 g/dl (12.0-18.0); Arterial pCO2 26.8 mmhg (35-45); MODE VENT - AC; Site Right Radial
[2018-04-17] MEDS: ARTIFICIAL TEARS 15 ML OPH BOTH EYES ×4 (09:26→20:59)
[2018-04-17] MEDS: NYSTATIN 30 GM POWDER BTL TOP ×2 (09:26→20:58)
[2018-04-17] MEDS: COLLAGENASE 5 GM (UD JAR) TOP (09:26)
[2018-04-17] MEDS: ASPIRIN 81 MG TAB PEG (09:26)
[2018-04-17] MEDS: predniSONE 10 MG TAB GTB (09:27)
[2018-04-17] MEDS: OCULAR LUBRICANT 3.5 GM OPH OINT BOTH EYES ×2 (09:27→20:58)
[2018-04-17] MEDS: INSULIN GLARGINE [LANTus] (100 UNITS/ML) SYG SC ×2 (09:35→21:05)
[2018-04-17] MEDS: BACITRACIN 0.9 GM OINT TOP ×2 (09:36→20:58)
[2018-04-17] MEDS: VASOPRESSIN 60 UNIT in DEXTROSE 5% 57 ML IV ×2 (10:00→22:00)
[2018-04-17] MEDS: ALBUMIN HUMAN 25% 100 ML IV (12:14)
[2018-04-17] MEDS: HEPARIN 1000 UNITS/ML 10 ML INJ CATHETER (14:40)
[2018-04-17] MEDS: CASPOFUNGIN 50 MG in NS 250 ML IVPB (14:49)
[2018-04-17] MEDS: NYSTATIN SUSP 5 ML CUP PO ×3 (14:50→20:58)
[2018-04-17] MEDS: LACTULOSE 30ML CUP PEG ×2 (16:59→20:58)
[2018-04-17] MEDS: CIPROFLOXACIN 400MG/D5W 200 ML IVPB (17:48)
[2018-04-17] MEDS: MULTIVITAMINS THERAPEUTIC TAB GTB (20:58)
[2018-04-17] MEDS: morphine 2 MG INJ IV (22:40)
[2018-04-18] MEDS: INSULIN ASPART [NOVOLOG] 3 ML PEN SC ×6 (00:59→20:30)
[2018-04-18 05:08] LABS: ADD MAN DIFF? NO
[2018-04-18 05:15] LABS: ABNORMAL IP MESSAGE 1; BASOPHILS % 0.2 % (0.0-2.0); EOSINOPHILS # 0.2 10^3/ul (0.0-0.5); EOSINOPHILS % 3.1 % (0.0-7.0); HEMATOCRIT 28.1 % (42.0-52.0); HEMOGLOBIN 9.1 g/dl (14.0-18.0); LYMPHOCYTES # 1.1 10^3/ul (0.8-2.9); MEAN CORPUSCULAR HEMOGLOBIN 28.4 pg (29.0-33.0); MEAN CORPUSCULAR HGB CONC 32.4 g/dl (32.0-37.0); MEAN CORPUSCULAR VOLUME 87.8 fl (82.0-101.0); MEAN PLATELET VOLUME 12.1 fl (7.4-10.4); MONOCYTE # 0.4 10^3/ul (0.3-0.9); MONOCYTES % 6.7 % (0.0-11.0); NEUTROPHIL # 3.7 10^3/ul (1.6-7.5); NEUTROPHILS % 69.6 % (39.0-77.0); PLATELET COUNT 68 10^3/UL (140-415); POSITIVE DIFF @See below; RED CELL DISTRIBUTION WIDTH 24.5 % (11.5-14.5)
[2018-04-18 05:15] LABS: WHITE BLOOD COUNT 5.2 10^3/ul (4.8-10.8)
[2018-04-18 05:39] LABS: ANION GAP 22 (8-16); BLOOD UREA NITROGEN 71 mg/dl (7-20); CALCIUM 7.4 mg/dl (8.4-10.2); CARBON DIOXIDE 21 mmol/L (21-31); CHLORIDE 102 mmol/L (97-110); CREATININE 3.02 mg/dl (0.61-1.24); GLUCOSE 179 mg/dl (70-220); MAGNESIUM 2.2 mg/dl (1.7-2.5); PHOSPHORUS 5.7 mg/dl (2.5-4.9); POTASSIUM 3.5 mmol/L (3.5-5.1); SODIUM 141 mmol/L (135-144)
[2018-04-18] MEDS: Metronidazole 500 MG in NS 100 ML IVPB ×3 (05:45→21:25)
[2018-04-18] MEDS: PANTOPRAZOLE 40 MG INJ IV (05:45)
[2018-04-18] MEDS: BACITRACIN 0.9 GM OINT TOP ×2 (08:35→20:41)
[2018-04-18] MEDS: ASPIRIN 81 MG TAB PEG (08:35)
[2018-04-18] MEDS: LACTULOSE 30ML CUP PEG ×2 (08:35→20:34)
[2018-04-18] MEDS: NYSTATIN 30 GM POWDER BTL TOP ×2 (08:35→20:35)
[2018-04-18] MEDS: COLLAGENASE 5 GM (UD JAR) TOP (08:35)
[2018-04-18] MEDS: ARTIFICIAL TEARS 15 ML OPH BOTH EYES ×4 (08:36→20:34)
[2018-04-18] MEDS: INSULIN GLARGINE [LANTus] (100 UNITS/ML) SYG SC ×2 (08:42→20:28)
[2018-04-18] MEDS: morphine 2 MG INJ IV ×2 (08:45→22:52)
[2018-04-18] MEDS: predniSONE 10 MG TAB GTB (08:45)
[2018-04-18] MEDS: NYSTATIN SUSP 5 ML CUP PO ×4 (08:45→20:34)
[2018-04-18] MEDS: VASOPRESSIN 60 UNIT in DEXTROSE 5% 57 ML IV ×2 (10:00→21:25)
[2018-04-18] MEDS: CASPOFUNGIN 50 MG in NS 250 ML IVPB (14:43)
[2018-04-18] MEDS: CIPROFLOXACIN 400MG/D5W 200 ML IVPB (18:13)
[2018-04-18] MEDS: MULTIVITAMINS THERAPEUTIC TAB GTB (20:34)
[2018-04-19] MEDS: INSULIN ASPART [NOVOLOG] 3 ML PEN SC ×6 (00:22→20:42)
[2018-04-19] MEDS: PANTOPRAZOLE 40 MG INJ IV (05:00)
[2018-04-19] MEDS: Metronidazole 500 MG in NS 100 ML IVPB ×3 (05:00→21:00)
[2018-04-19] MEDS: morphine 2 MG INJ IV ×2 (05:14→16:06)
[2018-04-19 05:53] LABS: WHITE BLOOD COUNT 4.8 10^3/ul (4.8-10.8)
[2018-04-19 05:53] LABS: ABNORMAL IP MESSAGE 1; HEMATOCRIT 30.9 % (42.0-52.0); MEAN CORPUSCULAR HEMOGLOBIN 29.2 pg (29.0-33.0); MEAN CORPUSCULAR HGB CONC 32.4 g/dl (32.0-37.0); MEAN CORPUSCULAR VOLUME 90.4 fl (82.0-101.0); MEAN PLATELET VOLUME 12.4 fl (7.4-10.4); NUCLEATED RED BLOOD CELLS% 0.4 /100WBC (0.0-0.0); PLATELET COUNT 106 10^3/UL (140-415); POSITIVE DIFF @See below; RED BLOOD COUNT 3.42 10^6/ul (4.70-6.10); RED CELL DISTRIBUTION WIDTH 24.7 % (11.5-14.5)
[2018-04-19 06:22] LABS: ANION GAP 24 (8-16); BLOOD UREA NITROGEN 103 mg/dl (7-20); CALCIUM 7.6 mg/dl (8.4-10.2); CARBON DIOXIDE 17 mmol/L (21-31); CHLORIDE 101 mmol/L (97-110); GLUCOSE 222 mg/dl (70-220); MAGNESIUM 2.3 mg/dl (1.7-2.5); PHOSPHORUS 7.2 mg/dl (2.5-4.9); POTASSIUM 4.2 mmol/L (3.5-5.1); SODIUM 138 mmol/L (135-144)
[2018-04-19 06:44] LABS: CREATININE 3.45 mg/dl (0.61-1.24)
[2018-04-19 06:45] LABS: ADD MAN DIFF? YES
[2018-04-19] MEDS: OCULAR LUBRICANT 3.5 GM OPH OINT BOTH EYES ×2 (08:13→16:07)
[2018-04-19] MEDS: ARTIFICIAL TEARS 15 ML OPH BOTH EYES ×4 (08:13→20:28)
[2018-04-19] MEDS: NYSTATIN 30 GM POWDER BTL TOP ×2 (08:13→20:28)
[2018-04-19] MEDS: COLLAGENASE 5 GM (UD JAR) TOP (08:13)
[2018-04-19] MEDS: SEVELAMER CARBONATE 2.4 GM PKT GTB ×3 (08:14→20:28)
[2018-04-19] MEDS: ASPIRIN 81 MG TAB PEG (08:14)
[2018-04-19] MEDS: LACTULOSE 30ML CUP PEG ×2 (08:14→20:28)
[2018-04-19] MEDS: predniSONE 10 MG TAB GTB (08:14)
[2018-04-19] MEDS: NYSTATIN SUSP 5 ML CUP PO ×4 (08:14→20:28)
[2018-04-19] MEDS: BACITRACIN 0.9 GM OINT TOP ×2 (08:15→20:28)
[2018-04-19] MEDS: INSULIN GLARGINE [LANTus] (100 UNITS/ML) SYG SC ×2 (08:19→20:22)
[2018-04-19] MEDS: VANCOMYCIN 750 MG in SOD CHLORIDE 0.9% 150 ML IVPB (09:54)
[2018-04-19] MEDS: LORAZEPAM 2 MG INJ IV ×2 (10:03→13:31)
[2018-04-19] MEDS: VASOPRESSIN 60 UNIT in DEXTROSE 5% 57 ML IV ×2 (10:15→20:56)
[2018-04-19 10:36] LABS: ANISOCYTOSIS 3+ (0-0); BAND NEUTROPHILS % (M) 21 % (0-4); BASOPHILS % (M) 1 % (0-2); EOSINOPHILS % (M) 1 % (0-7); ERYTHROBLAST% (NRBC) (M) 1 % (0-0); GIANT THROMBO% (M) 1 % (0-0); LYMPHOCYTES #M 0.7 10^3/ul (0.8-2.9); LYMPHOCYTES % (M) 15 % (15-51); MONOCYTE #M 0.2 10^3/ul (0.3-0.9); MONOCYTES % (M) 5 % (0-11); PLATELET ESTIMATE DECREASED; POIKILOCYTOSIS 2+ (0-0); REACTIVE LYMPHOCYTES% (M) 1 % (0-0); SEG NEUT #M 2.8 10^3/ul (1.6-7.5); SEGMENTED NEUTROPHILS (M) % 58 % (39-77); SMUDGE%M 16 % (0-0)
[2018-04-19] MEDS: HYDROCORTISONE 100 MG INJ IV ×2 (13:09→21:00)
[2018-04-19] MEDS: CASPOFUNGIN 50 MG in NS 250 ML IVPB (14:11)
[2018-04-19 14:56] LABS: HEPATITIS B SURFACE ANTIGEN NEGATIVE (NEGATIVE)
[2018-04-19 15:12] LABS: HEPATITIS B SURFACE ANTIBODY POSITIVE (NEGATIVE)
[2018-04-19] MEDS: CIPROFLOXACIN 400MG/D5W 200 ML IVPB (17:52)
[2018-04-19] MEDS: MULTIVITAMINS THERAPEUTIC TAB GTB (20:28)
[2018-04-20] MEDS: LORAZEPAM 2 MG INJ IV ×3 (00:52→13:15)
[2018-04-20] MEDS: INSULIN ASPART [NOVOLOG] 3 ML PEN SC ×6 (00:57→20:33)
[2018-04-20] MEDS: Metronidazole 500 MG in NS 100 ML IVPB ×3 (05:00→21:29)
[2018-04-20] MEDS: PANTOPRAZOLE 40 MG INJ IV (05:00)
[2018-04-20] MEDS: HYDROCORTISONE 100 MG INJ IV ×3 (05:00→21:29)
[2018-04-20 05:40] LABS: ADD MAN DIFF? NO
[2018-04-20 05:42] LABS: ABNORMAL IP MESSAGE 1; BASOPHILS % 0.2 % (0.0-2.0); HEMATOCRIT 30.4 % (42.0-52.0); HEMOGLOBIN 9.7 g/dl (14.0-18.0); LYMPHOCYTES # 1.2 10^3/ul (0.8-2.9); LYMPHOCYTES % 21.2 % (15.0-51.0); MEAN CORPUSCULAR HEMOGLOBIN 29.4 pg (29.0-33.0); MEAN CORPUSCULAR HGB CONC 31.9 g/dl (32.0-37.0); MEAN CORPUSCULAR VOLUME 92.1 fl (82.0-101.0); MEAN PLATELET VOLUME 11.5 fl (7.4-10.4); MONOCYTE # 0.4 10^3/ul (0.3-0.9); MONOCYTES % 7.7 % (0.0-11.0); NEUTROPHIL # 3.9 10^3/ul (1.6-7.5); NUCLEATED RED BLOOD CELLS% 0.4 /100WBC (0.0-0.0); PLATELET COUNT 118 10^3/UL (140-415); POSITIVE DIFF @See below; RED CELL DISTRIBUTION WIDTH 24.2 % (11.5-14.5)
[2018-04-20 05:42] LABS: WHITE BLOOD COUNT 5.6 10^3/ul (4.8-10.8)
[2018-04-20 06:12] LABS: ANION GAP 24 (8-16); CARBON DIOXIDE 14 mmol/L (21-31); CHLORIDE 100 mmol/L (97-110); GLUCOSE 264 mg/dl (70-220); MAGNESIUM 2.4 mg/dl (1.7-2.5); PHOSPHORUS 8.6 mg/dl (2.5-4.9); POTASSIUM 4.8 mmol/L (3.5-5.1); SODIUM 133 mmol/L (135-144)
[2018-04-20 06:21] LABS: BLOOD UREA NITROGEN 128 mg/dl (7-20); CREATININE 4.38 mg/dl (0.61-1.24)
[2018-04-20] MEDS: INSULIN GLARGINE [LANTus] (100 UNITS/ML) SYG SC ×2 (08:47→20:32)
[2018-04-20] MEDS: ARTIFICIAL TEARS 15 ML OPH BOTH EYES ×4 (08:49→20:17)
[2018-04-20] MEDS: ASPIRIN 81 MG TAB PEG (08:49)
[2018-04-20] MEDS: SEVELAMER CARBONATE 2.4 GM PKT GTB ×3 (08:49→20:17)
[2018-04-20] MEDS: LACTULOSE 30ML CUP PEG ×2 (08:49→20:17)
[2018-04-20] MEDS: BACITRACIN 0.9 GM OINT TOP ×2 (08:50→20:18)
[2018-04-20] MEDS: NYSTATIN 30 GM POWDER BTL TOP ×2 (08:50→20:17)
[2018-04-20] MEDS: COLLAGENASE 5 GM (UD JAR) TOP (09:00)
[2018-04-20] MEDS: morphine 2 MG INJ IV (09:00)
[2018-04-20] MEDS: VASOPRESSIN 60 UNIT in DEXTROSE 5% 57 ML IV ×2 (10:00→21:33)
[2018-04-20] MEDS: CASPOFUNGIN 50 MG in NS 250 ML IVPB (14:39)
[2018-04-20] MEDS: ALBUMIN HUMAN 25% 100 ML IV (16:28)
[2018-04-20] MEDS: HEPARIN 1000 UNITS/ML 10 ML INJ CATHETER (16:29)
[2018-04-20] MEDS: NORepinephrine 32 MG in DEXTROSE 5% 218 ML IV (17:16)
[2018-04-20] MEDS: CIPROFLOXACIN 400MG/D5W 200 ML IVPB (17:47)
[2018-04-20] MEDS: MULTIVITAMINS THERAPEUTIC TAB GTB (20:17)
[2018-04-21] MEDS: INSULIN ASPART [NOVOLOG] 3 ML PEN SC ×6 (01:21→20:50)
[2018-04-21] MEDS: morphine 2 MG INJ IV (03:03)
[2018-04-21 04:51] LABS: ADD MAN DIFF? NO
[2018-04-21 04:55] LABS: WHITE BLOOD COUNT 5.1 10^3/ul (4.8-10.8)
[2018-04-21 04:55] LABS: ABNORMAL IP MESSAGE 1; HEMATOCRIT 28.7 % (42.0-52.0); HEMOGLOBIN 9.1 g/dl (14.0-18.0); LYMPHOCYTES # 0.9 10^3/ul (0.8-2.9); LYMPHOCYTES % 18.1 % (15.0-51.0); MEAN CORPUSCULAR HEMOGLOBIN 28.6 pg (29.0-33.0); MEAN CORPUSCULAR HGB CONC 31.7 g/dl (32.0-37.0); MEAN CORPUSCULAR VOLUME 90.3 fl (82.0-101.0); MEAN PLATELET VOLUME 12.2 fl (7.4-10.4); MONOCYTE # 0.4 10^3/ul (0.3-0.9); MONOCYTES % 8.4 % (0.0-11.0); NEUTROPHIL # 3.7 10^3/ul (1.6-7.5); NEUTROPHILS % 72.9 % (39.0-77.0); NUCLEATED RED BLOOD CELLS% 0.8 /100WBC (0.0-0.0); PLATELET COUNT 114 10^3/UL (140-415); POSITIVE DIFF @See below; RED BLOOD COUNT 3.18 10^6/ul (4.70-6.10); RED CELL DISTRIBUTION WIDTH 24.8 % (11.5-14.5)
[2018-04-21 05:20] LABS: ANION GAP 22 (8-16); CALCIUM 7.2 mg/dl (8.4-10.2); CARBON DIOXIDE 16 mmol/L (21-31); CHLORIDE 99 mmol/L (97-110); GLUCOSE 197 mg/dl (70-220); MAGNESIUM 2.4 mg/dl (1.7-2.5); PHOSPHORUS 8.3 mg/dl (2.5-4.9); POTASSIUM 4.8 mmol/L (3.5-5.1); SODIUM 132 mmol/L (135-144)
[2018-04-21 05:33] LABS: BLOOD UREA NITROGEN 140 mg/dl (7-20); CREATININE 4.46 mg/dl (0.61-1.24)
[2018-04-21] MEDS: Metronidazole 500 MG in NS 100 ML IVPB ×3 (05:51→22:01)
[2018-04-21] MEDS: HYDROCORTISONE 100 MG INJ IV ×3 (05:51→22:01)
[2018-04-21] MEDS: PANTOPRAZOLE 40 MG INJ IV (05:51)
[2018-04-21] MEDS: INSULIN GLARGINE [LANTus] (100 UNITS/ML) SYG SC ×2 (08:09→20:48)
[2018-04-21] MEDS: LACTULOSE 30ML CUP PEG ×2 (08:10→20:52)
[2018-04-21] MEDS: COLLAGENASE 5 GM (UD JAR) TOP (08:10)
[2018-04-21] MEDS: ASPIRIN 81 MG TAB PEG (08:10)
[2018-04-21] MEDS: ARTIFICIAL TEARS 15 ML OPH BOTH EYES ×4 (08:10→20:52)
[2018-04-21] MEDS: NYSTATIN 30 GM POWDER BTL TOP ×2 (08:10→20:52)
[2018-04-21] MEDS: SEVELAMER CARBONATE 2.4 GM PKT GTB ×3 (08:10→20:52)
[2018-04-21] MEDS: VASOPRESSIN 60 UNIT in DEXTROSE 5% 57 ML IV ×2 (10:00→23:14)
[2018-04-21] MEDS: BACITRACIN 0.9 GM OINT TOP ×2 (10:39→20:51)
[2018-04-21] MEDS: CASPOFUNGIN 50 MG in NS 250 ML IVPB (12:34)
[2018-04-21] MEDS: NORepinephrine 32 MG in DEXTROSE 5% 218 ML IV (15:42)
[2018-04-21] MEDS: CIPROFLOXACIN 400MG/D5W 200 ML IVPB (17:30)
[2018-04-21] MEDS: ALBUMIN HUMAN 25% 100 ML IV (19:12)
[2018-04-21] MEDS: HEPARIN 1000 UNITS/ML 10 ML INJ CATHETER (19:28)
[2018-04-21] MEDS: MULTIVITAMINS THERAPEUTIC TAB GTB (20:51)
[2018-04-22] MEDS: INSULIN ASPART [NOVOLOG] 3 ML PEN SC ×6 (01:34→20:15)
[2018-04-22] MEDS: LORAZEPAM 2 MG INJ IV ×2 (02:24→17:27)
[2018-04-22 05:00] LABS: ADD MAN DIFF? NO
[2018-04-22 05:04] LABS: WHITE BLOOD COUNT 5.4 10^3/ul (4.8-10.8)
[2018-04-22 05:04] LABS: ABNORMAL IP MESSAGE 1; HEMATOCRIT 28.1 % (42.0-52.0); HEMOGLOBIN 8.7 g/dl (14.0-18.0); LYMPHOCYTES # 0.8 10^3/ul (0.8-2.9); LYMPHOCYTES % 15.5 % (15.0-51.0); MEAN CORPUSCULAR HEMOGLOBIN 27.9 pg (29.0-33.0); MEAN CORPUSCULAR VOLUME 90.1 fl (82.0-101.0); MEAN PLATELET VOLUME 12.4 fl (7.4-10.4); MONOCYTE # 0.5 10^3/ul (0.3-0.9); MONOCYTES % 9.2 % (0.0-11.0); NEUTROPHILS % 74.9 % (39.0-77.0); NUCLEATED RED BLOOD CELLS # 0.1 10^3/ul (0.0-0.0); NUCLEATED RED BLOOD CELLS% 1.3 /100WBC (0.0-0.0); PLATELET COUNT 87 10^3/UL (140-415); POSITIVE DIFF @See below; RED BLOOD COUNT 3.12 10^6/ul (4.70-6.10); RED CELL DISTRIBUTION WIDTH 25.3 % (11.5-14.5)
[2018-04-22 05:27] LABS: ANION GAP 26 (8-16); CALCIUM 7.5 mg/dl (8.4-10.2); CARBON DIOXIDE 14 mmol/L (21-31); CHLORIDE 98 mmol/L (97-110); GLUCOSE 153 mg/dl (70-220); POTASSIUM 4.2 mmol/L (3.5-5.1); SODIUM 134 mmol/L (135-144)
[2018-04-22 05:36] LABS: BLOOD UREA NITROGEN 152 mg/dl (7-20); CREATININE 4.35 mg/dl (0.61-1.24)
[2018-04-22] MEDS: PANTOPRAZOLE 40 MG INJ IV (05:58)
[2018-04-22] MEDS: Metronidazole 500 MG in NS 100 ML IVPB ×3 (05:58→22:00)
[2018-04-22] MEDS: HYDROCORTISONE 100 MG INJ IV (05:58)
[2018-04-22] MEDS: BACITRACIN 0.9 GM OINT TOP ×2 (08:21→20:14)
[2018-04-22] MEDS: SEVELAMER CARBONATE 2.4 GM PKT GTB ×3 (08:21→20:14)
[2018-04-22] MEDS: LACTULOSE 30ML CUP PEG ×2 (08:21→20:14)
[2018-04-22] MEDS: ASPIRIN 81 MG TAB PEG (08:21)
[2018-04-22] MEDS: NYSTATIN 30 GM POWDER BTL TOP ×2 (08:22→20:14)
[2018-04-22] MEDS: ARTIFICIAL TEARS 15 ML OPH BOTH EYES ×4 (08:22→20:14)
[2018-04-22] MEDS: COLLAGENASE 5 GM (UD JAR) TOP (08:22)
[2018-04-22 09:54] LABS: VANCOMYCIN,TROUGH 17.9 ug/ml (10.0-20.0)
[2018-04-22] MEDS: VASOPRESSIN 60 UNIT in DEXTROSE 5% 57 ML IV (10:00)
[2018-04-22] MEDS: NORepinephrine 32 MG in DEXTROSE 5% 218 ML IV (10:24)
[2018-04-22] MEDS: VANCOMYCIN 750 MG in SOD CHLORIDE 0.9% 150 ML IVPB (10:48)
[2018-04-22] MEDS: INSULIN GLARGINE [LANTus] (100 UNITS/ML) SYG SC ×2 (10:56→20:00)
[2018-04-22] MEDS ORDERED: METOCLOPRAMIDE 10 MG INJ IV (12:00)
[2018-04-22] MEDS: CASPOFUNGIN 50 MG in NS 250 ML IVPB (13:33)
[2018-04-22] MEDS: METOCLOPRAMIDE 10 MG INJ IV ×2 (13:33→20:14)
[2018-04-22] MEDS: CIPROFLOXACIN 400MG/D5W 200 ML IVPB (18:05)
[2018-04-22] MEDS: DIGOXIN 500 MCG INJ IV (19:00)
[2018-04-22] MEDS: MULTIVITAMINS THERAPEUTIC TAB GTB (20:14)
[2018-04-22] MEDS: OCULAR LUBRICANT 3.5 GM OPH OINT BOTH EYES (20:16)
[2018-04-22] MEDS: PHENYLephrine 160 MG in DEXTROSE 5% 484 ML IV (23:05)
[2018-04-23] MEDS: ALBUMIN HUMAN 25% 100 ML IV (00:26)
[2018-04-23] MEDS: INSULIN ASPART [NOVOLOG] 3 ML PEN SC ×6 (01:00→21:00)
[2018-04-23] MEDS: HEPARIN 1000 UNITS/ML 10 ML INJ CATHETER (02:48)
[2018-04-23] MEDS: LORAZEPAM 2 MG INJ IV (03:30)
[2018-04-23 04:21] LABS: ADD MAN DIFF? NO
[2018-04-23 04:28] LABS: WHITE BLOOD COUNT 4.2 10^3/ul (4.8-10.8)
[2018-04-23 04:28] LABS: ABNORMAL IP MESSAGE 1; EOSINOPHILS % 0.5 % (0.0-7.0); HEMATOCRIT 30.3 % (42.0-52.0); HEMOGLOBIN 9.5 g/dl (14.0-18.0); LYMPHOCYTES # 0.7 10^3/ul (0.8-2.9); MEAN CORPUSCULAR HEMOGLOBIN 29.2 pg (29.0-33.0); MEAN CORPUSCULAR HGB CONC 31.4 g/dl (32.0-37.0); MEAN CORPUSCULAR VOLUME 93.2 fl (82.0-101.0); MONOCYTE # 0.4 10^3/ul (0.3-0.9); MONOCYTES % 9.7 % (0.0-11.0); NEUTROPHIL # 3.1 10^3/ul (1.6-7.5); NEUTROPHILS % 72.9 % (39.0-77.0); NUCLEATED RED BLOOD CELLS # 0.2 10^3/ul (0.0-0.0); NUCLEATED RED BLOOD CELLS% 4.2 /100WBC (0.0-0.0); PLATELET COUNT 90 10^3/UL (140-415); POSITIVE DIFF @See below; RED BLOOD COUNT 3.25 10^6/ul (4.70-6.10); RED CELL DISTRIBUTION WIDTH 25.3 % (11.5-14.5)
[2018-04-23 04:53] LABS: ANION GAP 24 (8-16); BLOOD UREA NITROGEN 95 mg/dl (7-20); CALCIUM 7.7 mg/dl (8.4-10.2); CARBON DIOXIDE 16 mmol/L (21-31); CHLORIDE 98 mmol/L (97-110); GLUCOSE 112 mg/dl (70-220); MAGNESIUM 2.4 mg/dl (1.7-2.5); PHOSPHORUS 6.5 mg/dl (2.5-4.9); POTASSIUM 3.8 mmol/L (3.5-5.1); SODIUM 134 mmol/L (135-144)
[2018-04-23 05:06] LABS: CREATININE 3.14 mg/dl (0.61-1.24)
[2018-04-23] MEDS: PHENYLephrine 160 MG in DEXTROSE 5% 484 ML IV ×2 (05:27→19:15)
[2018-04-23] MEDS: VASOPRESSIN 60 UNIT in DEXTROSE 5% 57 ML IV ×3 (05:28→18:29)
[2018-04-23] MEDS: Metronidazole 500 MG in NS 100 ML IVPB ×3 (05:28→22:12)
[2018-04-23] MEDS: PANTOPRAZOLE 40 MG INJ IV (05:50)
[2018-04-23] MEDS: NORepinephrine 32 MG in DEXTROSE 5% 218 ML IV (07:55)
[2018-04-23] MEDS: LACTULOSE 30ML CUP PEG ×2 (08:48→21:02)
[2018-04-23] MEDS: ARTIFICIAL TEARS 15 ML OPH BOTH EYES ×4 (08:48→21:02)
[2018-04-23] MEDS: ASPIRIN 81 MG TAB PEG (08:48)
[2018-04-23] MEDS: BACITRACIN 0.9 GM OINT TOP ×2 (08:48→21:09)
[2018-04-23] MEDS: NYSTATIN 30 GM POWDER BTL TOP ×2 (08:49→21:03)
[2018-04-23] MEDS: COLLAGENASE 5 GM (UD JAR) TOP (08:49)
[2018-04-23] MEDS: METOCLOPRAMIDE 10 MG INJ IV ×2 (08:49→21:02)
[2018-04-23] MEDS: SEVELAMER CARBONATE 2.4 GM PKT GTB ×3 (08:49→21:00)
[2018-04-23 09:03] LABS: AADO2 Arterial 332.4 mmHg (7.0-24.0); Allen Test ACCEPTAB; Arterial Base Excess -11.7 mmol/L (-3.0-3); Arterial Blood Gas Oxygen Sat 87.3 mmHG (95.0-100.0); Arterial COHb 0.5 % (0.0-3.0); Arterial Fraction of Oxyhgb 86.6 % (93.0-99.0); Arterial HCO3 14.3 mmol/L (22.0-26.0); Arterial MetHb 0.3 % (0.0-1.5); Arterial Total Hemglobin 11.2 g/dl (12.0-18.0); Arterial pCO2 32.7 mmhg (35-45); MODE VENT - AC; Site Right Radial
[2018-04-23] MEDS: SODIUM BICARBONATE (IV ADD) 100 MEQ in DEXTROSE 5%-0.45% NACL 1,000 ML IV (11:43)
[2018-04-23] MEDS: CASPOFUNGIN 50 MG in NS 250 ML IVPB (12:38)
[2018-04-23] MEDS: INSULIN GLARGINE [LANTus] (100 UNITS/ML) SYG SC ×2 (14:32→23:10)
[2018-04-23] MEDS: CIPROFLOXACIN 400MG/D5W 200 ML IVPB (18:20)
[2018-04-23] MEDS: ACETAMINOPHEN 650MG/20.3ML CUP GTB (20:50)
[2018-04-23] MEDS: MULTIVITAMINS THERAPEUTIC TAB GTB (21:04)
[2018-04-23] MEDS: DEXTROSE 50% 50 ML SYRINGE IV (21:09)
[2018-04-23] MEDS: MIDAZOLAM (DRIP) 50 mg/50 mL 50 ML IV (23:18)
[2018-04-24] MEDS: INSULIN ASPART [NOVOLOG] 3 ML PEN SC ×6 (01:00→21:25)
[2018-04-24 05:40] LABS: ABNORMAL IP MESSAGE 1; HEMOGLOBIN 8.9 g/dl (14.0-18.0); MEAN CORPUSCULAR HEMOGLOBIN 29.5 pg (29.0-33.0); MEAN CORPUSCULAR HGB CONC 31.8 g/dl (32.0-37.0); MEAN CORPUSCULAR VOLUME 92.7 fl (82.0-101.0); MEAN PLATELET VOLUME 12.9 fl (7.4-10.4); NUCLEATED RED BLOOD CELLS% 2.4 /100WBC (0.0-0.0); PLATELET COUNT 104 10^3/UL (140-415); POSITIVE DIFF @See below; RED BLOOD COUNT 3.02 10^6/ul (4.70-6.10); RED CELL DISTRIBUTION WIDTH 25.8 % (11.5-14.5)
[2018-04-24 05:40] LABS: WHITE BLOOD COUNT 8.8 10^3/ul (4.8-10.8)
[2018-04-24] MEDS: SODIUM BICARBONATE (IV ADD) 100 MEQ in DEXTROSE 5%-0.45% NACL 1,000 ML IV ×3 (05:45→17:39)
[2018-04-24 05:46] LABS: ADD MAN DIFF? YES
[2018-04-24] MEDS: PHENYLephrine 160 MG in DEXTROSE 5% 484 ML IV ×4 (05:47→20:03)
[2018-04-24] MEDS: Metronidazole 500 MG in NS 100 ML IVPB ×3 (05:53→21:26)
[2018-04-24] MEDS: PANTOPRAZOLE 40 MG INJ IV (05:53)
[2018-04-24 06:26] LABS: ANION GAP 22 (8-16); BLOOD UREA NITROGEN 113 mg/dl (7-20); CALCIUM 7.5 mg/dl (8.4-10.2); CARBON DIOXIDE 15 mmol/L (21-31); CHLORIDE 95 mmol/L (97-110); GLUCOSE 119 mg/dl (70-220); MAGNESIUM 2.4 mg/dl (1.7-2.5); PHOSPHORUS 6.1 mg/dl (2.5-4.9); POTASSIUM 4.2 mmol/L (3.5-5.1); SODIUM 128 mmol/L (135-144)
[2018-04-24 08:15] LABS: ANISOCYTOSIS 3+ (0-0); BAND NEUTROPHILS #M 1.8 10^3/ul (0.0-0.6); BAND NEUTROPHILS % (M) 21 % (0-4); BURR CELLS 2+ (0-0); ERYTHROBLAST% (NRBC) (M) 6 % (0-0); LYMPHOCYTES #M 1.2 10^3/ul (0.8-2.9); LYMPHOCYTES % (M) 14 % (15-51); MYELOCYTES #M 0.1 10^3/ul (0.0-0.0); MYELOCYTES % (M) 2 % (0-0); PLATELET ESTIMATE DECREASED; POIKILOCYTOSIS 3+ (0-0); POLYCHROMASIA 1+ (0-0); PROMYELOCYTES % (M) 1 % (0-0); REACTIVE LYMPHOCYTES% (M) 1 % (0-0); SEG NEUT #M 5.5 10^3/ul (1.6-7.5); SEGMENTED NEUTROPHILS (M) % 61 % (39-77); SMUDGE%M 27 % (0-0); SPHEROCYTES 1+ (0-0); TARGET CELLS 1+ (0-0)
[2018-04-24] MEDS: COLLAGENASE 5 GM (UD JAR) TOP (09:10)
[2018-04-24] MEDS: NYSTATIN 30 GM POWDER BTL TOP ×2 (09:10→21:04)
[2018-04-24] MEDS: BACITRACIN 0.9 GM OINT TOP ×2 (09:10→21:04)
[2018-04-24] MEDS: ARTIFICIAL TEARS 15 ML OPH BOTH EYES ×4 (09:11→21:04)
[2018-04-24] MEDS: INSULIN GLARGINE [LANTus] (100 UNITS/ML) SYG SC ×2 (09:25→21:24)
[2018-04-24] MEDS: VASOPRESSIN 60 UNIT in DEXTROSE 5% 57 ML IV ×2 (10:00→17:23)
[2018-04-24] MEDS: ALBUMIN HUMAN 25% 100 ML IV ×2 (10:28→11:29)
[2018-04-24] MEDS: HEPARIN 1000 UNITS/ML 10 ML INJ CATHETER (12:42)
[2018-04-24] MEDS: MIDAZOLAM (DRIP) 50 mg/50 mL 50 ML IV (12:47)
[2018-04-24] MEDS: LACTULOSE 30ML CUP PEG ×2 (12:48→21:03)
[2018-04-24] MEDS: METOCLOPRAMIDE 10 MG INJ IV ×2 (12:49→21:04)
[2018-04-24] MEDS: SEVELAMER CARBONATE 2.4 GM PKT GTB ×3 (12:49→21:04)
[2018-04-24] MEDS: CASPOFUNGIN 50 MG in NS 250 ML IVPB (14:04)
[2018-04-24] MEDS: CIPROFLOXACIN 400MG/D5W 200 ML IVPB (17:27)
[2018-04-24] MEDS: DIGOXIN 500 MCG INJ IV (19:48)
[2018-04-24] MEDS: NORepinephrine 32 MG in DEXTROSE 5% 218 ML IV (20:10)
[2018-04-24] MEDS: MULTIVITAMINS THERAPEUTIC TAB GTB (21:03)
[2018-04-24] MEDS: ACETAMINOPHEN 650MG/20.3ML CUP GTB (21:22)
[2018-04-24] MEDS ORDERED: PHENYLEPHRINE IV (22:30)
[2018-04-24] MEDS ORDERED: DEXTROSE 5% IV (22:30)
[2018-04-25] MEDS: INSULIN ASPART [NOVOLOG] 3 ML PEN SC ×6 (01:54→20:56)
[2018-04-25] MEDS: PANTOPRAZOLE 40 MG INJ IV (05:28)
[2018-04-25] MEDS: SODIUM BICARBONATE (IV ADD) 100 MEQ in DEXTROSE 5%-0.45% NACL 1,000 ML IV ×3 (05:29→18:56)
[2018-04-25] MEDS: Metronidazole 500 MG in NS 100 ML IVPB ×3 (05:29→22:37)
[2018-04-25 05:44] LABS: WHITE BLOOD COUNT 9.4 10^3/ul (4.8-10.8)
[2018-04-25 05:44] LABS: ABNORMAL IP MESSAGE 1; HEMATOCRIT 24.9 % (42.0-52.0); HEMOGLOBIN 7.9 g/dl (14.0-18.0); MEAN CORPUSCULAR HEMOGLOBIN 30.3 pg (29.0-33.0); MEAN CORPUSCULAR HGB CONC 31.7 g/dl (32.0-37.0); MEAN CORPUSCULAR VOLUME 95.4 fl (82.0-101.0); MEAN PLATELET VOLUME 12.6 fl (7.4-10.4); PLATELET COUNT 74 10^3/UL (140-415); POSITIVE DIFF @See below; RED BLOOD COUNT 2.61 10^6/ul (4.70-6.10); RED CELL DISTRIBUTION WIDTH 25.6 % (11.5-14.5)
[2018-04-25 05:52] LABS: ADD MAN DIFF? YES
[2018-04-25 06:09] LABS: ANION GAP 25 (8-16); BLOOD UREA NITROGEN 75 mg/dl (7-20); CALCIUM 7.3 mg/dl (8.4-10.2); CARBON DIOXIDE 14 mmol/L (21-31); CHLORIDE 91 mmol/L (97-110); GLUCOSE 162 mg/dl (70-220); POTASSIUM 3.5 mmol/L (3.5-5.1); SODIUM 126 mmol/L (135-144)
[2018-04-25 06:19] LABS: CREATININE 2.66 mg/dl (0.61-1.24)
[2018-04-25] MEDS: VASOPRESSIN 60 UNIT in DEXTROSE 5% 57 ML IV ×2 (06:23→22:00)
[2018-04-25] MEDS: SEVELAMER CARBONATE 2.4 GM PKT GTB ×3 (08:09→21:00)
[2018-04-25] MEDS: LACTULOSE 30ML CUP PEG ×2 (08:09→21:00)
[2018-04-25 08:11] LABS: ANISOCYTOSIS 3+ (0-0); BAND NEUTROPHILS #M 0.1 10^3/ul (0.0-0.6); BAND NEUTROPHILS % (M) 2 % (0-4); BURR CELLS 1+ (0-0); ERYTHROBLAST% (NRBC) (M) 3 % (0-0); LYMPHOCYTES #M 0.5 10^3/ul (0.8-2.9); LYMPHOCYTES % (M) 6 % (15-51); MONOCYTE #M 0.3 10^3/ul (0.3-0.9); MONOCYTES % (M) 4 % (0-11); MYELOCYTES % (M) 1 % (0-0); PLATELET ESTIMATE DECREASED; POIKILOCYTOSIS 1+ (0-0); POLYCHROMASIA 1+ (0-0); SEG NEUT #M 8.2 10^3/ul (1.6-7.5); SEGMENTED NEUTROPHILS (M) % 87 % (39-77); SMUDGE%M 1 % (0-0); TARGET CELLS 1+ (0-0)
[2018-04-25] MEDS: ARTIFICIAL TEARS 15 ML OPH BOTH EYES ×4 (08:21→20:57)
[2018-04-25] MEDS: METOCLOPRAMIDE 10 MG INJ IV ×2 (08:21→20:53)
[2018-04-25] MEDS: OCULAR LUBRICANT 3.5 GM OPH OINT BOTH EYES (08:22)
[2018-04-25] MEDS: NYSTATIN 30 GM POWDER BTL TOP ×2 (08:22→21:02)
[2018-04-25] MEDS: BACITRACIN 0.9 GM OINT TOP ×2 (08:23→21:02)
[2018-04-25] MEDS: INSULIN GLARGINE [LANTus] (100 UNITS/ML) SYG SC ×2 (08:25→22:40)
[2018-04-25] MEDS: MIDAZOLAM (DRIP) 50 mg/50 mL 50 ML IV ×2 (08:32→16:16)
[2018-04-25] MEDS: COLLAGENASE 5 GM (UD JAR) TOP (10:30)
[2018-04-25] MEDS: PHENYLephrine 160 MG in DEXTROSE 5% 484 ML IV ×2 (10:31→19:33)
[2018-04-25] MEDS: NORepinephrine 32 MG in DEXTROSE 5% 218 ML IV (10:37)
[2018-04-25] MEDS: CASPOFUNGIN 50 MG in NS 250 ML IVPB (12:30)
[2018-04-25] MEDS: CIPROFLOXACIN 400MG/D5W 200 ML IVPB (17:49)
[2018-04-25] MEDS: MULTIVITAMINS THERAPEUTIC TAB GTB (21:00)
[2018-04-26] MEDS: SODIUM BICARBONATE (IV ADD) 100 MEQ in DEXTROSE 5%-0.45% NACL 1,000 ML IV ×2 (00:58→13:12)
[2018-04-26] MEDS: INSULIN ASPART [NOVOLOG] 3 ML PEN SC ×6 (01:02→20:36)
[2018-04-26] MEDS: MIDAZOLAM (DRIP) 50 mg/50 mL 50 ML IV ×2 (03:43→16:28)
[2018-04-26] MEDS: NORepinephrine 32 MG in DEXTROSE 5% 218 ML IV ×2 (03:44→23:19)
[2018-04-26] MEDS: PHENYLephrine 160 MG in DEXTROSE 5% 484 ML IV ×3 (03:45→22:20)
[2018-04-26] MEDS: VASOPRESSIN 60 UNIT in DEXTROSE 5% 57 ML IV ×2 (04:34→22:03)
[2018-04-26] MEDS: PANTOPRAZOLE 40 MG INJ IV (05:04)
[2018-04-26] MEDS: Metronidazole 500 MG in NS 100 ML IVPB ×3 (05:04→21:51)
[2018-04-26 05:14] LABS: ABNORMAL IP MESSAGE 1; HEMATOCRIT 26.1 % (42.0-52.0); HEMOGLOBIN 8.2 g/dl (14.0-18.0); MEAN CORPUSCULAR HEMOGLOBIN 29.3 pg (29.0-33.0); MEAN CORPUSCULAR HGB CONC 31.4 g/dl (32.0-37.0); MEAN CORPUSCULAR VOLUME 93.2 fl (82.0-101.0); MEAN PLATELET VOLUME 12.9 fl (7.4-10.4); PLATELET COUNT 85 10^3/UL (140-415); POSITIVE DIFF @See below
[2018-04-26 05:14] LABS: WHITE BLOOD COUNT 18.4 10^3/ul (4.8-10.8)
[2018-04-26 05:21] LABS: ADD MAN DIFF? YES
[2018-04-26 05:36] LABS: ANION GAP 24 (8-16); BLOOD UREA NITROGEN 83 mg/dl (7-20); CALCIUM 7.4 mg/dl (8.4-10.2); CARBON DIOXIDE 17 mmol/L (21-31); CHLORIDE 86 mmol/L (97-110); GLUCOSE 120 mg/dl (70-220); POTASSIUM 3.9 mmol/L (3.5-5.1); SODIUM 123 mmol/L (135-144)
[2018-04-26 05:43] LABS: CREATININE 2.95 mg/dl (0.61-1.24)
[2018-04-26 08:41] LABS: ANISOCYTOSIS 3+ (0-0); BAND NEUTROPHILS #M 2.2 10^3/ul (0.0-0.6); BAND NEUTROPHILS % (M) 12 % (0-4); BASOPHIL #M 0.1 10^3/ul (0.0-0.0); BASOPHILS % (M) 1 % (0-2); BURR CELLS 3+ (0-0); EOSINOPHILS % (M) 1 % (0-7); ERYTHROBLAST% (NRBC) (M) 3 % (0-0); GIANT THROMBO% (M) 3 % (0-0); HOWELL-JOLLY BODIES 1+ (0-0); LYMPHOCYTES #M 0.1 10^3/ul (0.8-2.9); LYMPHOCYTES % (M) 1 % (15-51); MONOCYTE #M 0.5 10^3/ul (0.3-0.9); MONOCYTES % (M) 3 % (0-11); OVALOCYTES 1+ (0-0); PLATELET ESTIMATE DECREASED; POIKILOCYTOSIS 3+ (0-0); POLYCHROMASIA 2+ (0-0); SEG NEUT #M 15.5 10^3/ul (1.6-7.5); SEGMENTED NEUTROPHILS (M) % 82 % (39-77); SMUDGE%M 24 % (0-0); TARGET CELLS 1+ (0-0); TOXIC GRANULATION 2+ (0-0)
[2018-04-26] MEDS: INSULIN GLARGINE [LANTus] (100 UNITS/ML) SYG SC ×2 (08:49→20:35)
[2018-04-26] MEDS: NYSTATIN 30 GM POWDER BTL TOP ×2 (08:50→20:49)
[2018-04-26] MEDS: METOCLOPRAMIDE 10 MG INJ IV ×2 (08:50→20:49)
[2018-04-26] MEDS: SEVELAMER CARBONATE 2.4 GM PKT GTB ×3 (08:50→20:42)
[2018-04-26] MEDS: LACTULOSE 30ML CUP PEG ×2 (08:50→20:43)
[2018-04-26] MEDS: ARTIFICIAL TEARS 15 ML OPH BOTH EYES ×4 (08:50→20:49)
[2018-04-26] MEDS: COLLAGENASE 5 GM (UD JAR) TOP (08:51)
[2018-04-26] MEDS: BACITRACIN 0.9 GM OINT TOP ×2 (08:53→20:49)
[2018-04-26] MEDS ORDERED: VANCOMYCIN 500MG/NS (PMX) 100 ML IVPB (10:00)
[2018-04-26] MEDS: VANCOMYCIN 750 MG in SOD CHLORIDE 0.9% 150 ML IVPB (12:43)
[2018-04-26] MEDS: CASPOFUNGIN 50 MG in NS 250 ML IVPB (12:49)
[2018-04-26] MEDS: CIPROFLOXACIN 400MG/D5W 200 ML IVPB (17:31)
[2018-04-26] MEDS: MULTIVITAMINS THERAPEUTIC TAB GTB (20:42)
[2018-04-27] MEDS: SODIUM BICARBONATE (IV ADD) 100 MEQ in DEXTROSE 5%-0.45% NACL 1,000 ML IV ×4 (00:18→22:44)
[2018-04-27] MEDS: INSULIN ASPART [NOVOLOG] 3 ML PEN SC ×6 (01:00→20:48)
[2018-04-27] MEDS: MIDAZOLAM (DRIP) 50 mg/50 mL 50 ML IV ×2 (02:04→16:36)
[2018-04-27 05:13] LABS: ABNORMAL IP MESSAGE 1; HEMATOCRIT 26.7 % (42.0-52.0); HEMOGLOBIN 8.1 g/dl (14.0-18.0); MEAN CORPUSCULAR HEMOGLOBIN 29.6 pg (29.0-33.0); MEAN CORPUSCULAR HGB CONC 30.3 g/dl (32.0-37.0); MEAN CORPUSCULAR VOLUME 97.4 fl (82.0-101.0); MEAN PLATELET VOLUME 12.8 fl (7.4-10.4); NUCLEATED RED BLOOD CELLS% 2.5 /100WBC (0.0-0.0); PLATELET COUNT 81 10^3/UL (140-415); POSITIVE DIFF @See below; RED BLOOD COUNT 2.74 10^6/ul (4.70-6.10); RED CELL DISTRIBUTION WIDTH 25.1 % (11.5-14.5)
[2018-04-27 05:27] LABS: ADD MAN DIFF? YES
[2018-04-27] MEDS: PANTOPRAZOLE 40 MG INJ IV (05:36)
[2018-04-27] MEDS: Metronidazole 500 MG in NS 100 ML IVPB ×3 (05:36→20:40)
[2018-04-27 05:42] LABS: ANION GAP 31 (8-16); BLOOD UREA NITROGEN 82 mg/dl (7-20); CALCIUM 6.8 mg/dl (8.4-10.2); CHLORIDE 84 mmol/L (97-110); GLUCOSE 117 mg/dl (70-220); POTASSIUM 4.5 mmol/L (3.5-5.1)
[2018-04-27 05:48] LABS: CARBON DIOXIDE 10 mmol/L (21-31); SODIUM 120 mmol/L (135-144)
[2018-04-27 05:52] LABS: CREATININE 2.79 mg/dl (0.61-1.24)
[2018-04-27] MEDS: PHENYLephrine 160 MG in DEXTROSE 5% 484 ML IV (06:49)
[2018-04-27] MEDS: LACTULOSE 30ML CUP PEG ×2 (08:24→20:40)
[2018-04-27] MEDS: SEVELAMER CARBONATE 2.4 GM PKT GTB ×3 (08:25→20:40)
[2018-04-27] MEDS: BACITRACIN 0.9 GM OINT TOP (08:25)
[2018-04-27] MEDS: ARTIFICIAL TEARS 15 ML OPH BOTH EYES ×4 (08:25→20:41)
[2018-04-27] MEDS: NYSTATIN 30 GM POWDER BTL TOP ×2 (08:25→20:40)
[2018-04-27] MEDS: COLLAGENASE 5 GM (UD JAR) TOP (08:25)
[2018-04-27] MEDS: METOCLOPRAMIDE 10 MG INJ IV ×2 (08:25→20:40)
[2018-04-27] MEDS ORDERED: [UNRECOGNIZED DRUG - REMARK] XX (08:30)
[2018-04-27] MEDS: INSULIN GLARGINE [LANTus] (100 UNITS/ML) SYG SC ×2 (08:42→20:49)
[2018-04-27 08:44] LABS: ANISOCYTOSIS 2+ (0-0); BAND NEUTROPHILS #M 7.5 10^3/ul (0.0-0.6); BAND NEUTROPHILS % (M) 30 % (0-4); BASOPHIL #M 0.5 10^3/ul (0.0-0.0); BASOPHILS % (M) 2 % (0-2); BURR CELLS 1+ (0-0); EOSINOPHILS % (M) 1 % (0-7); ERYTHROBLAST% (NRBC) (M) 3 % (0-0); LYMPHOCYTES % (M) 4 % (15-51); MONOCYTE #M 1.5 10^3/ul (0.3-0.9); MONOCYTES % (M) 6 % (0-11); OVALOCYTES 1+ (0-0); PLATELET ESTIMATE DECREASED; POIKILOCYTOSIS 3+ (0-0); POLYCHROMASIA 3+ (0-0); PROMYELOCYTES #M 0.2 10^3/ul (0-0); PROMYELOCYTES % (M) 1 % (0-0); REACTIVE LYMPHOCYTES #M 0.2 10^3/ul (0.0-0.0); REACTIVE LYMPHOCYTES% (M) 1 % (0-0); SCHISTOCYTES 1+ (0-0); SEG NEUT #M 15.6 10^3/ul (1.6-7.5); SEGMENTED NEUTROPHILS (M) % 55 % (39-77); SMUDGE%M 12 % (0-0); TARGET CELLS 1+ (0-0)
[2018-04-27] MEDS: VASOPRESSIN 60 UNIT in SOD CHLORIDE 0.9% 57 ML IV ×2 (10:00→15:28)
[2018-04-27] MEDS: CASPOFUNGIN 50 MG in NS 250 ML IVPB (12:50)
[2018-04-27] MEDS: PHENYLephrine 160 MG in SOD CHLORIDE 0.9% 484 ML IV ×2 (15:29→22:48)
[2018-04-27] MEDS: NORepinephrine 32 MG in SOD CHLORIDE 0.9% 218 ML IV (15:30)
[2018-04-27] MEDS: CIPROFLOXACIN 400MG/D5W 200 ML IVPB (17:30)
[2018-04-27] MEDS: MULTIVITAMINS THERAPEUTIC TAB GTB (20:40)
[2018-04-27] MEDS: OCULAR LUBRICANT 3.5 GM OPH OINT BOTH EYES (20:41)
[2018-04-28] MEDS: INSULIN ASPART [NOVOLOG] 3 ML PEN SC (00:10)
[2018-04-28] MEDS: NORepinephrine 32 MG in SOD CHLORIDE 0.9% 218 ML IV (01:02)
[2018-04-28] MEDS ORDERED: DOPamine-D5W 1.6 MG/ML 250 ML (01:14)
[2018-04-28] MEDS: DOPamine-D5W 1.6 MG/ML 250 ML IV (01:26)
== END 2018-04-28 03:22 | disposition expired | DRG 870 ==
LOC: ICU 04-09 02:25
PROC: 5A1955Z Respiratory Ventilation, Greater than 96 Consecutive Hours (ICD-10-PCS; principal; 2018-04-06)
PROC: 02HV33Z Insertion of Infusion Device into Superior Vena Cava, Percutaneous Approach (ICD-10-PCS; 2018-04-07)
PROC: 5A1D70Z Performance of Urinary Filtration, Intermittent, Less than 6 Hours Per Day (ICD-10-PCS; 2018-04-08)
DX: A41.9 Sepsis, unspecified organism (principal); L89.893 Pressure ulcer of other site, stage 3; L89.814 Pressure ulcer of head, stage 4; L89.153 Pressure ulcer of sacral region, stage 3; R65.21 Severe sepsis with septic shock; N17.0 Acute kidney failure with tubular necrosis; K65.2 Spontaneous bacterial peritonitis; J18.9 Pneumonia, unspecified organism; N18.6 End stage renal disease; G93.40 Encephalopathy, unspecified; J96.11 Chronic respiratory failure with hypoxia; I12.0 Hypertensive chronic kidney disease with stage 5 chronic kidney disease or end stage renal disease; Z99.11 Dependence on respirator [ventilator] status; R18.8 Other ascites; B37.89 Other sites of candidiasis; E11.22 Type 2 diabetes mellitus with diabetic chronic kidney disease; Z99.2 Dependence on renal dialysis; Z66 Do not resuscitate; R13.10 Dysphagia, unspecified; Z87.891 Personal history of nicotine dependence; E87.5 Hyperkalemia; B19.20 Unspecified viral hepatitis C without hepatic coma; B96.89 Other specified bacterial agents as the cause of diseases classified elsewhere; B95.61 Methicillin susceptible Staphylococcus aureus infection as the cause of diseases classified elsewhere; R19.7 Diarrhea, unspecified; Z93.0 Tracheostomy status; B96.5 Pseudomonas (aeruginosa) (mallei) (pseudomallei) as the cause of diseases classified elsewhere; I69.392 Facial weakness following cerebral infarction; I69.398 Other sequelae of cerebral infarction
CPT/HCPCS: 36569; 36600; 71045; 76937; 80048; 80053; 80202; 82042; 82140; 82803; 82962; 83605; 83735; 84100; 84450; 84460; 85025; 86706; 86709; 87040; 87070; 87081; 87086; 87102; 87116; 87340; 88104; 89051; 90935; 94002; 94003; 94640